=== PATIENT | female | born 1990 | race Caucasian/White ===

== ENCOUNTER → 2017-04-15 | Outpatient (CLI) | payer OTHER ==
[~2017-04-15] MED LIST: MTR600X PO; PRENTAB26 PO
[2017-04-15 13:11] LABS: BASO % 0.5 %; BASO ABS # 0.04 K/uL (0-0.2); COMPLETE YES; EOS % 2.8 %; HEMATOCRIT 41.9 % (37-47); IG% 0.1 %; LYMPH % 28.7 %; LYMPH ABS # 2.46 K/uL (1.2-3.4); MEAN CELL VOLUME 88.8 fL (80-100); MEAN CORPUSCULAR HEMOGLOBIN 29.9 pg (25-34); MEAN CORPUSCULAR HGB CONC 33.7 g/dl (32-36); MEAN PLATELET VOLUME 10.4 fL (7.4-10.4); MONO % 3.7 %; NEUT % 64.2 %; PLATELET COUNT 238 K/uL (130-400); RED BLOOD COUNT 4.72 M/uL (4.2-5.4); WHITE BLOOD COUNT 8.58 K/uL (4.8-10.8)
[2017-04-15 13:42] LABS: ALT/SGPT 32 U/L (12-78); BLOOD UREA NITROGEN 10 mg/dl (7-18); BUN/CREATININE RATIO 13.3 (10-20); CARBON DIOXIDE 26 mmol/L (21-32); CHLORIDE 105 mmol/L (98-107); CREATININE 0.72 mg/dl (0.60-1.20); GLUCOSE 96 mg/dl (70-99); SODIUM 140 mmol/L (136-145)
[2017-04-15 13:44] LABS: CALCIUM 9.5 mg/dl (8.5-10.1)
[2017-04-15 13:52] LABS: ALB/GLOB RATIO 0.9 (0.9-2); ALKALINE PHOSPHATASE 69 U/L (45-117); AST/SGOT 14 U/L (15-37)
[2017-04-15 14:21] LABS: LYME DISEASE AB IGM NEG (NEG)
[2017-04-15 14:24] LABS: LYME DISEASE AB IGG NEG (NEG)
--- NOTE | 2017-04-23 06:44 | CODING QUERY MEDICAL NECESSITY ---
SUPPORTING DIAGNOSIS NEEDED Ritter RIDDLE, A supporting diagnosis is required for the test/procedure performed on this patient in order for us to be reimbursed by the patient's insurance. Please provide a supporting diagnosis for the following test/procedure listed below next to the test name along with your signature. *If there is no additional diagnosis for this patient that would support the following test/procedure please document that below next to the test/procedure. Test(s)/Procedure(s) that require a supporting diagnosis: * VITAMIN D ASSAY DIAGNOSIS: DATE OF SERVICE: 04/15/17 Provider Signature: Date: Thank you Boby Monzon [facility] Information Management Once completed, please kindly fax back to [phone] For questions please call [phone]
== END | disposition home or self-care (01) ==
LOC: C.LAB 12:34
PROVIDERS: ATTEND Nurse Practitioner Adult Health
DX: F32.9 Major depressive disorder, single episode, unspecified (principal); F41.9 Anxiety disorder, unspecified; Z86.2 Personal history of diseases of the blood and blood-forming organs and certain disorders involving the immune mechanism; R53.83 Other fatigue

== ENCOUNTER 2017-11-02 22:38 | Emergency (ER) | payer OTHER ==
[~2017-11-02] VITALS: Ht 160 cm; Wt 85.6 kg
[2017-11-02 22:41] VITALS: TEMP 36.9; Ht 160 cm; Wt 85.6 kg
[2017-11-02 23:01] VITALS: O2SAT 97
[2017-11-02] MEDS ORDERED: ASPIRIN 81 MG CHEW PO STA (23:02)
[2017-11-02 23:10] LABS: BASO % 0.3 %; BASO ABS # 0.02 K/uL (0-0.2); COMPLETE YES; EOS % 2.7 %; HEMATOCRIT 39.3 % (37-47); IG% 0.1 %; LYMPH % 37.8 %; LYMPH ABS # 2.91 K/uL (1.2-3.4); MEAN CELL VOLUME 89.5 fL (80-100); MEAN CORPUSCULAR HEMOGLOBIN 30.5 pg (25-34); MEAN CORPUSCULAR HGB CONC 34.1 g/dl (32-36); MEAN PLATELET VOLUME 10.4 fL (7.4-10.4); MONO % 6.8 %; NEUT % 52.3 %; PLATELET COUNT 192 K/uL (130-400); RED BLOOD COUNT 4.39 M/uL (4.2-5.4)
[2017-11-02] MEDS ORDERED: CHOL20007 PO (23:24)
[2017-11-02 23:27] LABS: ALT/SGPT 62 U/L (12-78); AST/SGOT 29 U/L (15-37); BLOOD UREA NITROGEN 15 mg/dl (7-18); BUN/CREATININE RATIO 20.2 (10-20); CALCIUM 9.2 mg/dl (8.5-10.1); CARBON DIOXIDE 27 mmol/L (21-32); CHLORIDE 105 mmol/L (98-107); CREATININE 0.76 mg/dl (0.60-1.20); GLUCOSE 96 mg/dl (70-99); POTASSIUM 3.5 mmol/L (3.5-5.1); SODIUM 137 mmol/L (136-145)
[2017-11-02 23:30] LABS: ALKALINE PHOSPHATASE 74 U/L (45-117)
[2017-11-02 23:39] LABS: POINT OF CARE TROPONIN I < 0.030 ng/ml (0-0.045)
[2017-11-02 23:41] LABS: PREG INTERNAL NEGATIVE QC NEG CLEAR BACKGROUND; PREG INTERNAL POSITIVE QC POS CONTROL LINE
[2017-11-02] MEDS ORDERED: SODIUM CHLORIDE 0.9% 500ML 500 ML IV STA (23:43)
[2017-11-03] MEDS ORDERED: OPTIRAY 320 IV PRN
[2017-11-03 00:52] VITALS: BP 92/64; PULSE 74; O2SAT 99
--- NOTE | 2017-11-03 02:06 | EMERGENCY ROOM VISIT NOTE ---
History Report prepared by Rina: Jeny Bahena Under the Supervision of: Dr. Valentina Liz M.D. First contact with patient: 22:44 Chief Complaint: CARDIAC ASSESSMENT Stated Complaint: CHEST DISCOMFORT,BACK PAIN,SWELLING OF HANDS,DIZZY History of Present Illness The patient is a 27 year old female who presents to the Emergency Room with complaints of persistent left chest pain that began one week ago. The patient states that she was sitting down earlier when she began experiencing severe shoulder pain and hand swelling, noting it was new compared to her chest pain. She describes her discomfort as a dull pain behind her left breast that tends to be sharp at times, but becomes dull again. The patient notes it sometimes worsens with breathing. The patient states she had pizza for dinner. She denies taking control or being a smoker. The patient states she is a nurse. Source of History: patient Onset: one week ago Position: chest (left) Quality: sharp, dull Timing: other (persistent) Modifying Factors (Worsening): breathing (sometimes) Note: Associated symptoms include: shoulder pain and hand swelling. Review of Systems See HPI for pertinent positives & negatives. A total of 10 systems reviewed and were otherwise negative. Past Medical & Surgical Medical Problems: (1) Decreased movement in in third trimester, antepartum (2) Normal labor and delivery (3) Other specified complication, antepartum (4) Ovarian cyst (5) Right sided abdominal pain (6) UTI (urinary tract infection) Surgical Problems: (1) S/P cholecystectomy Family History Diabetes mellitus FHx: gallbladder disease Heart disease Social History Smoking Status: Never Smoker Alcohol Use: occasionally Housing Status: lives with family Occupation Status: student Current/Historical Medications Scheduled Cholecalciferol (Vitamin D3), 2,000 UNITS PO DAILY Allergies Coded Allergies: Adhesives (Verified Allergy, Unknown, , redness,swelling, 11/02/17) Latex1 -Allergic Contact Dermititis (Verified Allergy, Unknown, rash, ) Uncoded Allergies: CHERRIES (Allergy, Severe, ANAPHYLAXIS, 06/10/16) BANANAS (Allergy, Intermediate, DRY MOUTH, 06/10/16) Physical Exam Vital Signs Date Time Temp Pulse Resp B/P (MAP) Pulse Ox O2 Delivery O2 Flow Rate FiO2 11/03/17 00:52 74 18 92/64 99 Room Air 11/03/17 00:13 94 18 98/74 97 Room Air 11/02/17 23:01 101 18 129/72 97 Room Air 11/02/17 23:01 97 Room Air 11/02/17 23:01 98 Room Air 11/02/17 22:58 105 11/02/17 22:41 36.9 100 18 134/86 100 Room Air Physical Exam Vital signs reviewed. General: Well-appearing female, tearful but in no significant distress. HEENT: No scleral icterus, PERRLA, neck supple. Atraumatic. Cardiovascular: Regular rate and rhythm, no extra sounds. Pulmonary: Clear to auscultation bilaterally, normal work of breathing. Abdomen: Soft, nontender, nondistended, positive bowel sounds. Musculoskeletal: Atraumatic, no peripheral edema. Neurologic: Patient awake alert and oriented x 3 Skin: Warm, dry, no rash Medical Decision & Procedures ER Provider Diagnostic Interpretation: Radiology results as stated below per my review: Chest x-ray: Poor inspiratory effort, no focal consolidation. Performed: 11/02/2017 23:02 CTA CHEST: Preliminary findings only: No evidence of PE. Lungs are clear. No pleural effusions. No adenopathy. Heart size is normal. Aorta is unremarkable. Radiologist: Josias Liu M.D. Laboratory Results 11/02/17 22:58 Red Blood Count 4.39, Mean Corpuscular Volume 89.5, Mean Corpuscular Hemoglobin 30.5, Mean Corpuscular Hemoglobin Concent 34.1, Mean Platelet Volume 10.4, Neutrophils (%) (Auto) 52.3, Lymphocytes (%) (Auto) 37.8, Monocytes (%) (Auto) 6.8, Eosinophils (%) (Auto) 2.7, Basophils (%) (Auto) 0.3, Neutrophils # (Auto) 4.03, Lymphocytes # (Auto) 2.91, Monocytes # (Auto) 0.52, Eosinophils # (Auto) 0.21, Basophils # (Auto) 0.02 11/02/17 22:58 Test 11/02/17 22:58 11/02/17 23:21 White Blood Count 7.70 K/uL (4.8-10.8) Red Blood Count 4.39 M/uL (4.2-5.4) Hemoglobin 13.4 g/dL (12.0-16.0) Hematocrit 39.3 % (37-47) Mean Corpuscular Volume 89.5 fL (80-100) Mean Corpuscular Hemoglobin 30.5 pg (25-34) Mean Corpuscular Hemoglobin Concent 34.1 g/dl (32-36) Platelet Count 192 K/uL (130-400) Mean Platelet Volume 10.4 fL (7.4-10.4) Neutrophils (%) (Auto) 52.3 % Lymphocytes (%) (Auto) 37.8 % Monocytes (%) (Auto) 6.8 % Eosinophils (%) (Auto) 2.7 % Basophils (%) (Auto) 0.3 % Neutrophils # (Auto) 4.03 K/uL (1.4-6.5) Lymphocytes # (Auto) 2.91 K/uL (1.2-3.4) Monocytes # (Auto) 0.52 K/uL (0.11-0.59) Eosinophils # (Auto) 0.21 K/uL (0-0.5) Basophils # (Auto) 0.02 K/uL (0-0.2) RDW Standard Deviation 41.5 fL (36.4-46.3) RDW Coefficient of Variation 12.7 % (11.5-14.5) Immature Granulocyte % (Auto) 0.1 % Immature Granulocyte # (Auto) 0.01 K/uL (0.00-0.02) Anion Gap 5.0 mmol/L (3-11) Est Creatinine Clear Calc Drug Dose 115.3 ml/min Estimated GFR () 124.6 Estimated GFR (Non- 107.5 BUN/Creatinine Ratio 20.2 (10-20) Calcium Level 9.2 mg/dl (8.5-10.1) Total Bilirubin 0.3 mg/dl (0.2-1) Direct Bilirubin < 0.1 mg/dl (0-0.2) Aspartate Amino Transf (AST/SGOT) 29 U/L (15-37) Alanine Aminotransferase (ALT/SGPT) 62 U/L (12-78) Alkaline Phosphatase 74 U/L (45-117) Total Protein 8.5 gm/dl (6.4-8.2) Albumin 4.0 gm/dl (3.4-5.0) Human Chorionic Gonadotropin, Qual NEG (NEG) Bedside D-Dimer > 450 ng/mlFEU (0-450) Bedside Troponin I < 0.030 ng/ml (0-0.045) Laboratory results per my review. Medications Administered Medications (Trade) Dose Ordered Sig/Verónica Route Start Time Stop Time Status Last Admin Dose Admin Aspirin (Aspirin Chew) 324 mg NOW STAT PO 11/02/17 23:02 11/02/17 23:04 DC 11/02/17 23:13 324 MG Sodium Chloride 500 ml @ 999 mls/hr Q31M STAT IV 11/02/17 23:43 11/03/17 00:13 DC 11/02/17 23:43 999 MLS/HR ECG Indication: chest pain Rate (beats per minute): 105 Rhythm: sinus tachycardia Findings: no acute ischemic change, no ectopy, other (t-waves flat ) ED Course 2301: Past medical records reviewed. The patient was evaluated in room A3. A complete history and physical examination was performed. 2302: Ordered Aspirin 324mg PO. 2343: Ordered Sodium Chloride 500ml @ 999mls/hr. 2426: I reevaluated the patient, who was resting comfortably. 0000: Ordered Ioversol 100ml IV. 0010: Upon reevaluation, the patient appeared to have improvement of her symptoms. I discussed findings with her. She verbalized agreement of the treatment plan. The patient was discharged home. Medical Decision Differential diagnosis: Etiologies such as cardiac ischemia, aortic dissection, pulmonary embolism, pneumonia, pneumothorax, musculoskeletal, infections, pericarditis, myocarditis , esophageal rupture, gastrointestinal, as well as others were entertained. This patient was evaluated and appeared to be in some discomfort. Patient was tearful and somewhat anxious. IV access was obtained and laboratory work was drawn. She was placed on the cardiac exercise specialist and found to be in a sinus tachycardia. The patient was given aspirin 324 mg to chew. Chest x-ray was obtained and to my interpretation is negative. EKG reveals no acute ischemic changes however the patient remained tachycardic. Laboratory work revealed negative cardiac enzymes but a positive d-dimer. CT scan of the chest was performed and is negative for PE. Patient was advised of the findings. She will use ibuprofen as needed for pain with food. She will return to the ER for worsening of symptoms or any medical concerns. Medication Reconcilliation Current Medication List: was personally reviewed by me Blood Pressure Screening Blood pressure disposition: Did not require urgent referral Impression Primary Impression: Atypical chest pain Scribe Attestation The scribe's documentation has been prepared under my direction and personally reviewed by me in its entirety. I confirm that the note above accurately reflects all work, treatment, procedures, and medical decision making performed by me. Departure Information Dispostion Home / Self-Care Referrals No Doctor, Assigned (PCP) Forms IMPORTANT VISIT INFORMATION Patient Instructions My [facility] Additional Instructions Diagnosis: Atypical chest pain Ibuprofen 600 mg every 6 hours as needed for pain with food. Minimize the salt in your diet, less than 2 g daily. Please drink plenty of clear fluids. Review physician for reevaluation this week. Return to the ER for worsening of symptoms or any medical concerns.
--- NOTE | 2017-11-03 06:40 | DIAGNOSTIC IMAGING REPORT ---
CT ANGIOGRAM OF THE CHEST CLINICAL HISTORY: Shortness of breath and elevated d-dimer COMPARISON STUDY: Chest x-ray dated 11/02/2017 TECHNIQUE: Following the IV administration of 80 mL of Optiray-320, CT angiogram of the thorax was performed from the thoracic inlet to the lung bases utilizing the pulmonary embolus protocol. Images are reviewed in the axial, sagittal, and coronal planes. IV contrast was administered without complication. MIP imaging was performed. A dose lowering technique was utilized adhering to the principles of ALARA. CT DOSE: 473.19 mGy.cm FINDINGS: No pathologically enlarged axillary mediastinal or hilar lymph nodes were visualized. There was no evidence of thoracic aortic dilatation. There were no pulmonary artery filling defects to indicate acute pulmonary embolism. No pleural effusions are visualized. Slight groundglass attenuation the lungs, likely secondary to a suboptimal inspiration. There is no focal pulmonary consolidation. IMPRESSION: 1. No evidence of acute pulmonary embolism 2. No evidence of focal pulmonary consolidation 3. No evidence of pathologic adenopathy. Electronically signed by: Seymour Rubin M.D. 11/03/2017 6:39 AM Dictated Date/Time: 11/03/2017 6:37 AM
--- NOTE | 2017-11-03 06:59 | DIAGNOSTIC IMAGING REPORT ---
CHEST ONE VIEW PORTABLE CLINICAL HISTORY: Atypical chest pain COMPARISON STUDY: No previous studies for comparison. FINDINGS: The cardiac and mediastinal contours are normal. There is no evidence of focal pulmonary consolidation. There is no evidence of failure. No pleural effusions are visualized.[ IMPRESSION: No active disease in the chest. Electronically signed by: Seymour Rubin M.D. 11/03/2017 6:57 AM Dictated Date/Time: 11/03/2017 6:57 AM
== END 2017-11-03 00:54 | disposition home or self-care (01) ==
LOC: C.EDB 22:39 → C.EDA 11-03 00:54
DX: R07.89 Other chest pain (principal); R00.0 Tachycardia, unspecified; N83.209 Unspecified ovarian cyst, unspecified side; Z87.440 Personal history of urinary (tract) infections; Z90.49 Acquired absence of other specified parts of digestive tract; Z91.040 Latex allergy status; Z91.09 Other allergy status, other than to drugs and biological substances; Z83.3 Family history of diabetes mellitus; Z83.79 Family history of other diseases of the digestive system; Z82.49 Family history of ischemic heart disease and other diseases of the circulatory system

== ENCOUNTER → 2017-11-14 | Outpatient (CLI) | payer OTHER ==
[~2017-11-14] MED LIST changes: +CHOL20007 PO; -MTR600X PO; -PRENTAB26 PO
== END | disposition home or self-care (01) ==
LOC: C.LAB 08:57
PROVIDERS: ATTEND Nurse Practitioner Family
DX: R07.9 Chest pain, unspecified (principal)

== ENCOUNTER 2018-01-02 19:10 | Emergency (ER) | payer OTHER ==
[~2018-01-02] VITALS: Ht 160 cm; Wt 86.1 kg
[2018-01-02 19:19] VITALS: TEMP 36.8; Ht 160 cm; Wt 86.1 kg
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
--- NOTE | 2018-01-02 21:53 | DIAGNOSTIC IMAGING REPORT ---
CT OF THE HEAD WITHOUT CONTRAST CLINICAL HISTORY: EVALUATE FOR TRAUMA/INJURY COMPARISON STUDY: Head CT March 30, 2013. TECHNIQUE: Helical axial images of the head were obtained without IV contrast. Automated exposure control was utilized for the study. A dose lowering technique was utilized adhering to the principles of ALARA. FINDINGS: No acute intracranial hemorrhage, midline shift or mass effect is present. Brain volume is normal. Ventricular system is normal. Basilar cisterns are patent. There are no extra-axial collections. There is a small forehead contusion. There is no calvarial fracture. IMPRESSION: 1. No acute intracranial findings. 2. Small forehead contusion. No calvarial fracture. Electronically signed by: López Kurtz M.D. 01/02/2018 9:52 PM Dictated Date/Time: 01/02/2018 9:49 PM
--- NOTE | 2018-01-02 21:55 | DIAGNOSTIC IMAGING REPORT ---
MAXILLOFACIAL CT WITHOUT CONTRAST CLINICAL HISTORY: EVALUATE FOR TRAUMA/INJURY COMPARISON STUDY: Head CT March 30, 2013. TECHNIQUE: A maxillofacial CT was performed without IV contrast. Coronal and sagittal reformats were viewed. A dose lowering technique was utilized adhering to the principles of ALARA. FINDINGS: Globes are intact. There is no retrobulbar hematoma. Alignment of the temporomandibular joints is anatomic. There is moderate mucosal thickening of the left maxillary sinus as well as the left ethmoid sinuses. There is a small forehead contusion. There is no calvarial fracture. IMPRESSION: 1. No acute facial fracture. 2. Small forehead contusion. Electronically signed by: López Kurtz M.D. 01/02/2018 9:54 PM Dictated Date/Time: 01/02/2018 9:52 PM
--- NOTE | 2018-01-02 22:30 | DIAGNOSTIC IMAGING REPORT ---
CHEST ONE VIEW PORTABLE CLINICAL HISTORY: EVALUATE FOR TRAUMA/INJURY COMPARISON STUDY: Chest radiograph and chest CT November 02, 2017. FINDINGS: There is no pneumothorax or pleural effusion. Lung volumes are at the lower limits of normal. Lungs are clear. Cardiac size is normal. Mediastinal contours are normal. Pulmonary vascularity is normal. IMPRESSION: No acute cardiopulmonary findings. Electronically signed by: López Kurtz M.D. 01/02/2018 10:29 PM Dictated Date/Time: 01/02/2018 10:28 PM
[2018-01-02 22:33] VITALS: BP 121/75; PULSE 99; O2SAT 99
== END 2018-01-02 22:33 | disposition home or self-care (01) ==
LOC: C.EDB 19:12
DX: S00.83XA Contusion of other part of head, initial encounter (principal); S80.211A Abrasion, right knee, initial encounter; S01.552A Open bite of oral cavity, initial encounter; S02.5XXA Fracture of tooth (traumatic), initial encounter for closed fracture; V48.5XXA Car driver injured in noncollision transport accident in traffic accident, initial encounter; Z91.048 Other nonmedicinal substance allergy status; Z91.040 Latex allergy status; Z83.3 Family history of diabetes mellitus; Z82.49 Family history of ischemic heart disease and other diseases of the circulatory system; Z83.79 Family history of other diseases of the digestive system

== ENCOUNTER 2024-01-16 10:34 | Observation (INO) ==
[2024-01-16] MEDS: SODIUM CHLORIDE 0.9% 1,000 ML IV STA (10:55)
[2024-01-16] MEDS: ONDANSETRON INJ 2 MG/ML 2 ML VIAL IV STA ×2 (10:58→15:49)
[2024-01-16] MEDS: FAMOTIDINE 20MG IV PUSH 20 MG/5 ML SYR IV STA (10:59)
[2024-01-16 11:07] LABS: Basophils # (auto) 0.02 K/uL (0.00-0.20); Basophils % (auto) 0.3 %; Eosinophils # (auto) 0.09 K/uL (0.00-0.50); Eosinophils % (auto) 1.5 %; Hematocrit (blood only) 39.2 % (37.0-47.0); Hemoglobin 13.3 g/dl (12.0-16.0); Immature Granulocytes # (auto) 0.02 K/uL (0.01-0.20); Immature Granulocytes % (auto) 0.3 %; Lymphocytes # (auto) 0.97 K/uL (1.20-3.40); Lymphocytes % (auto) 16.6 %; Mean Corpuscular Hemoglobin 29.6 pg (25.0-34.0); Mean Corpuscular Hgb Conc 33.9 g/dL (32.0-36.0); Mean Corpuscular Volume 87.1 fL (80.0-100.0); Mean Platelet Volume 10.3 fL (9.4-12.4); Monocytes % (auto) 6.8 %; Neutrophils # (auto) 4.36 K/uL (1.40-6.50); Neutrophils % (auto) 74.5 %; Platelet Count 193 K/uL (130-400); RDW Coefficient of Variation 12.6 % (11.5-14.5); RDW Standard Deviation 40.2 fL (36.4-46.3); White Blood Count 5.86 K/ul (4.8-10.8)
[2024-01-16 11:08] LABS: Albumin Globulin Ratio 1.7 (0.9-2); Albumin Level 4.7 gm/dl (3.4-5.0); BUN Creatinine Ratio 18.4 (10-20); Bilirubin,Total 0.3 mg/dl (0.2-1.0); Calcium 9.3 mg/dl (8.6-10.3); Creatinine Clr Calc Pharmacy 110.8 ml/min; Est GFR (African American) 119.5 ml/min; Est GFR (Non-African American) 103.1 ml/min; Globulin 2.8 gm/dl (2.5-4.0); Potassium 3.5 mmol/L (3.5-5.1); Total Protein 7.5 gm/dl (6.0-8.3)
--- NOTE | 2024-01-16 11:10 | Emergency Department Note ---
Impression & Plan Acute upper gastrointestinal bleeding ED Provider Note NAME: BELA VINSON AGE: 33 SEX: F : 1990 ARRIVES VIA: Walk-In INFORMANT: Patient, ED PROVIDER(S): Zi Vidales DO CHIEF COMPLAINT: Epigastric pain HPI: The patient is a 33-year-old female who presented to the emergency department for an evaluation of epigastric pain. The patient has a history of gastric ulcer disease. She does take medications for this. She has been compliant with her outpatient medications. The patient started noticing epigastric pain and left upper quadrant pain as well as back pain over the course of the last 24 hours. She started noticing black tarry stool as well. The patient's stool was heme positive. The patient states her pain is moderate to severe. She denies having any fever. She denies having any chest pain or difficulty breathing. Patient denies having any leg swelling. ROS: See above HPI for pertinent positives & negatives. A total of 10 systems reviewed and were otherwise negative. PAST MEDICAL HISTORY: See Below PAST SURGICAL HISTORY: See Below FAMILY HISTORY: See Below SOCIAL HISTORY: See Below HOME MEDICATIONS: See Below ALLERGIES: See Below VITALS: See Below PHYSICAL EXAMINATION: GENERAL: The patient is awake and alert. The patient is very anxious and appears to be uncomfortable. EYES: The conjunctivae are clear. The pupils are round and reactive. EARS, NOSE, MOUTH AND THROAT: The nose is without any evidence of any deformity. NECK: The neck is nontender and supple. RESPIRATORY: Normal respiratory effort is noted there is no evidence of wheezing rhonchi or rales CARDIOVASCULAR: Tachycardic rate with regular heart sounds were noted. There is no definite murmur. GASTROINTESTINAL: Abdomen is distended. There is epigastric tenderness as well as left upper quadrant tenderness to palpation which is moderate. MUSCULOSKELETAL/EXTREMITIES: There is no evidence of gross deformity full range of motion is noted in the hips and shoulders. SKIN: There is no obvious evidence of any rash. There are no petechiae, pallor or cyanosis noted. NEUROLOGIC: Patient is awake alert and oriented x3 MEDICAL DECISION MAKING: The patient is a 33-year-old female who has a history of peptic ulcer disease who presented to the emergency department for an evaluation of the upper GI bleeding. The patient started noticing upper abdominal pain but also black tarry stool. The stool was heme positive. The patient's hemoglobin was stable but she was persistently tachycardic. Given her pain as well as her past medical history further laboratory and radiographic studies were obtained. The patient was treated with a Protonix drip. She was also treated with IV fluids and IV pain medication as well as IV antiemetics. She was given IV antibiotics because of the upper GI bleeding. I discussed the patient's laboratory and radiographic studies with her. I discussed her condition with the on-call [facility]. They have agreed to evaluate the patient in the emergency department for further management and disposition. Triage Nursing notes reviewed. Prior medical records reviewed Vital Signs: reviewed and remarkable for tachycardia. Differential diagnosis: Diverticulosis, AVM, coagulopathy, colitis, inflammatory bowel disease, malignancy, Moira-Joya tear, esophagitis, peptic ulcer disease, variceal bleed, gastritis, epistaxis, fissure, hemorrhoids, as well as other pathologies. ER treatment provided: See below Diagnostics interpreted by me: ECG: none Cardiac Monitoring: An order was placed for continuous cardiac monitoring. The monitor shows a rate of 111 bpm with sinus tachycardia Laboratory studies: As stated above and show below. Imaging studies: See below. Radiographic imaging was reviewed by myself Consultation(s): I discussed this case with Anil who is covering for the [facility] group. ED COURSE: Procedures: none Critical Care: I have personally spent greater than 45 minutes of critical care time in the direct management of this patient. This includes bedside care, interpretation of diagnostic studies, and testing, discussion with consultants, patient, and family members, and other required patient management activities. This 45 minutes is in excess of all separately billable procedures. Past Med/Surg History Medical History Palpitations has worn heart monitor in past > nothing conclusive History of COVID-19 2020 ADHD Swallowing difficulty reason for up coming colon/EGD Difficult airway for intubation small airway--had to be kept overnight after cholecystectomy History of anesthesia reaction difficulty waking Symptoms consistent with irritable bowel syndrome reason for up coming colon/EGD Anxiety Depression History of anemia Migraine Surgical History History of esophagogastroduodenoscopy (EGD) History of cholecystectomy (~2009) Family History Grandmother (Maternal) Melanoma Myocardial infarction Aunt Aneurysm and dissection of heart Father Diabetes Melanoma Hypertension TIA (transient ischemic attack) Brother Gallbladder disease Mother Diabetes Other No family history of adverse response to anesthesia Denies family history of Colon cancer Ovarian cancer Prostate cancer Breast cancer Social History Smoking Status: Never smoker Second Hand Exposure: No; Do You Dip or Chew Tobacco: No; Hx Alcohol Use: Yes Alcohol type: wine Alcohol Intake Frequency: Monthly or Less Hx Substance Use: No Preferred Language: Nepali Communication Ability: Effective Visual Impairment: No Limitations Hearing Ability: Normal Email Marketing Coordinator Required: No Beliefs That Will Affect Care: None marital status: Single Current Living Situation: Family and Significant Other Current Living Situation Comment: Lives with and 3 kids current occupational status: employed 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[employer] How many Children do You have: 2 Feels Safe at Home: Yes Childhood Exposure to Second-Hand Smoke: No Diet: regular caffeine: No during the past year weight has: decreased > 10 lbs Dental Care, Regularly: No Physical Activity Frequency: Daily Seatbelt Use: always Sunscreen Use: Yes Assistive Devices: Contacts and Glasses Allergies Allergies Allergy/AdvReac Type Severity Reaction Status Date / Time ennis Allergy Severe Anaphylaxis Verified 12/07/23 08:49 adhesive Allergy Intermediate redness,swe Verified 12/07/23 08:49 lling egg Allergy Intermediate Rash Verified 12/07/23 08:49 Influenza Virus Vaccines Allergy Intermediate swelling Verified 12/07/23 08:49 of arm latex Allergy Mild rash Verified 12/07/23 08:49 banana AdvReac Mild Dry Mouth Verified 12/07/23 08:49 Home Meds Home Medications Medication Instructions Recorded Confirmed acetaminophen 325 mg capsule 650 mg PO Q4H PRN Pain 04/14/19 01/16/24 (Tylenol) riboflavin (vitamin B2) 400 mg 400 mg PO QAM 04/14/19 01/16/24 tablet cholecalciferol (vitamin D3) 50 2,000 units PO QAM 04/19/19 01/16/24 mcg (2,000 unit) capsule omega-3 fatty acids 1,000 mg 1,000 mg PO QAM 04/19/19 01/16/24 capsule magnesium 250 mg tablet 250 mg PO QAM 07/22/19 01/16/24 flaxseed oil 1,000 mg capsule 1,000 mg PO QAM 07/18/21 01/16/24 dextroamphetamine-amphetamine 5 mg 5 mg PO BID 07/17/23 01/16/24 tablet (Adderall) buspirone 5 mg tablet 15 mg PO DAILY Anxiety 12/03/23 01/16/24 fluoxetine 40 mg capsule 40 mg PO HS 01/16/24 01/16/24 Previous Rx's Medication Instructions Recorded dicyclomine 10 mg capsule 10 mg PO QID #30 caps 06/09/23 pantoprazole 40 mg tablet,delayed 40 mg PO BID #60 tabs 07/27/23 release ondansetron 4 mg disintegrating 4 mg PO Q8H PRN Nausea #30 tabs 12/07/23 tablet Results & Data (ED) Vital Signs Vital Signs - 24 hr 01/16/24 10:46 01/16/24 10:51 01/16/24 11:56 Temperature 36.8 C Temperature Source Oral Pulse Rate 116 H 111 H Pulse Rate [Apical] Respiratory Rate 20 Blood Pressure 118/91 Blood Pressure [Left Arm] Blood Pressure Mean 100 Blood Pressure Mean [Left Arm] Pulse Oximetry 98 97 Oxygen Delivery Method Room Air Room Air Sepsis Recent Fever Within 48 Hours No Sepsis New/Unexplained Change in Mental Status N/A Sepsis Action Taken by Nursing No Action Required 01/16/24 12:10 01/16/24 13:29 Temperature Temperature Source Pulse Rate Pulse Rate [Apical] 118 H 111 H Respiratory Rate 19 19 Blood Pressure Blood Pressure [Left Arm] 126/80 118/89 Blood Pressure Mean Blood Pressure Mean [Left Arm] 95 98 Pulse Oximetry 100 99 Oxygen Delivery Method Room Air Room Air Sepsis Recent Fever Within 48 Hours Sepsis New/Unexplained Change in Mental Status Sepsis Action Taken by [facility] Medications Current Medication List: was personally reviewed by me Laboratory Data Attestation: I reviewed the patient's lab results. 01/16/24 10:39 01/16/24 10:39 Lab Results 01/16/24 01/16/24 Range/Units 10:39 12:40 WBC 5.86 (4.8-10.8) K/ul RBC 4.50 (4.20-5.40) M/uL Hgb 13.3 (12.0-16.0) g/dl Hct 39.2 (37.0-47.0) % MCV 87.1 (80.0-100.0) fL MCH 29.6 (25.0-34.0) pg MCHC 33.9 (32.0-36.0) g/dL RDW Std Deviation 40.2 (36.4-46.3) fL RDW Coeff of Patrick 12.6 (11.5-14.5) % Plt Count 193 (130-400) K/uL MPV 10.3 (9.4-12.4) fL Immature Gran % (Auto) 0.3 % Neut % (Auto) 74.5 % Lymph % (Auto) 16.6 % Toole % (Auto) 6.8 % Eos % (Auto) 1.5 % Baso % (Auto) 0.3 % Neut # (Auto) 4.36 (1.40-6.50) K/uL Lymph # (Auto) 0.97 L (1.20-3.40) K/uL Toole # (Auto) 0.40 (0.11-0.59) K/uL Eos # (Auto) 0.09 (0.00-0.50) K/uL Baso # (Auto) 0.02 (0.00-0.20) K/uL Immature Gran # (Auto) 0.02 (0.01-0.20) K/uL Sodium 136 (136-145) mmol/L Potassium 3.5 (3.5-5.1) mmol/L Chloride 101 (98-107) mmol/L Carbon Dioxide 27 (21-32) mmol/L Anion Gap 8 (3-11) BUN 14 (6-23) mg/dl Creatinine 0.76 (0.6-1.2) mg/dl Est Cr Clr Drug Dosing 110.8 ml/min Est GFR ( Amer) 119.5 ml/min Est GFR (Non-Af Amer) 103.1 ml/min BUN/Creatinine Ratio 18.4 (10-20) Glucose 96 (70-99(Fasting)) mg/dl Calcium 9.3 (8.6-10.3) mg/dl Total Bilirubin 0.3 (0.2-1.0) mg/dl AST 35 (13-39) U/L ALT 52 (7-52) U/L Alkaline Phosphatase 65 (34-104) U/L Total Protein 7.5 (6.0-8.3) gm/dl Albumin 4.7 (3.4-5.0) gm/dl Globulin 2.8 (2.5-4.0) gm/dl Albumin/Globulin Ratio 1.7 (0.9-2) Lipase 34 (11-82) U/L HCG, Qual Negative (Negative) Urine Color Yellow Urine Appearance Clear (Clear) Urine pH 6.0 (4.5-7.5) Ur Specific [place] > 1.045 H (1.000-1.030) Urine Protein Negative (Negative) Urine Glucose (UA) Negative (Negative) Urine Ketones Negative (Negative) Urine Blood Negative (Negative) Urine Nitrite Negative (Negative) Urine Bilirubin Negative (Negative) Urine Urobilinogen Negative (Negative) Ur Leukocyte Esterase Negative (Negative) Blood Type AB Positive Antibody Screen NEGATIVE Administered Medications Lactated Ringer's (Lr) 1,000 mls @ 999 mls/hr IV .Q1H1M ONE Stop: 01/16/24 13:51 Last Admin: 01/16/24 13:46 Dose: 999 mls/hr Documented By: ML Discontinued Medications Sodium Chloride (Nss) 1,000 mls @ 999 mls/hr IV .Q1H1M STA Stop: 01/16/24 11:46 Last Infusion: 01/16/24 11:56 Dose: Infused Documented By: Admin: 01/16/24 10:55 Dose: 999 mls/hr Documented By: SONAM Famotidine (Pepcid 20mg Iv Push) 20 mg in 5 mls @ 2.5 mls/min IV NOW STA Stop: 01/16/24 10:47 Last Admin: 01/16/24 10:59 Dose: 2.5 mls/min Documented By: SONAM Pantoprazole Sodium 80 mg/ (Dextrose) 120 mls @ 480 mls/hr IV NOW ONE Stop: 01/16/24 11:00 Last Infusion: 01/16/24 11:55 Dose: Infused Documented By: Admin: 01/16/24 11:29 Dose: 480 mls/hr Documented By: FAB Pantoprazole Sodium 40 mg/ (Dextrose) 100 mls @ 20 mls/hr IV Q5H [facility] Stop: 02/15/24 11:14 Last Admin: 01/16/24 11:50 Dose: 8 mg/hr, 20 mls/hr Documented By: ML Ceftriaxone Sodium (Rocephin) 2,000 mg in 50 mls @ 100 mls/hr IV NOW STA Stop: 01/16/24 12:18 Last Infusion: 01/16/24 13:25 Dose: Infused Documented By: Admin: 01/16/24 12:04 Dose: 100 mls/hr Documented By: ML Ioversol (Optiray 320 500ml) 90 ml IV ONCE ONE Stop: 01/16/24 11:19 Last Admin: 01/16/24 11:19 Dose: 90 ml Documented By: EDK Lorazepam (Lorazepam 1 Mg/1 Ml Syr Ed Inj Use) 1 mg IV ONE STA Stop: 01/16/24 11:39 Last Admin: 01/16/24 12:04 Dose: 1 mg Documented By: ML Morphine Sulfate (Morphine Sulfate 4 Mg/Ml 1 Ml Carp\Vial) 4 mg IV Q15M PRN PRN Reason: Pain Stop: 01/30/24 10:45 Last Admin: 01/16/24 12:57 Dose: 4 mg Documented By: ML Ondansetron HCl (Ondansetron Inj 2 Mg/Ml 2 Ml Vial) 4 mg IV NOW STA Stop: 01/16/24 10:47 Last Admin: 01/16/24 10:58 Dose: 4 mg Documented By: ML Pantoprazole Sodium (Pantoprazole Bolus/Drip) 1 each IV NOW STA Stop: 01/16/24 10:47 Last Admin: 01/16/24 11:51 Dose: Not Given Documented By: ML Imaging Data Attestation: I personally reviewed and interpreted this imaging study as follows: My Impression: CT of the abdomen and pelvis was obtained in the emergency department. My interpretation is no free air or signs of bowel obstruction, final report below. Radiologist's Impression: Abdomen/Pelvis CT 01/16/24 10:[address] WITH IV CONTRAST CT DOSE: 1338.59 mGy.cm HISTORY: Acute generalized abdominal pain with reported GI bleed UGIB TECHNIQUE: Multiaxial CT images of the abdomen and pelvis were performed following the IV administration of 90 cc of Optiray, A dose lowering technique was utilized adhering to the principles of ALARA. COMPARISON STUDY: 05/15/2023 FINDINGS: Clear lung bases. No free air. Spleen is upper limits of normal in size at 13 cm. Unremarkable pancreas and adrenal glands. Cholecystectomy. Hepatic steatosis. Patency of the hepatic and portal veins. Unremarkable kidneys. Partially decompressed urinary bladder. Nonspecific mild heterogeneity of the uterus. Probable uterine fibroid measuring 2 cm on image 315 series 3. Unremarkable abdominal aorta and IVC. No lymphadenopathy. No bowel obstruction. Mild colonic fecal retention. Scattered large and small bowel air-fluid levels. Circumferential wall thickening of the colon is most pronounced in the ascending and transverse segments. The appendix appears to be not inflamed. Areas of mild small bowel wall thickening also noted. Unremarkable soft tissues. No acute fracture. IMPRESSION: 1. No bowel obstruction or pneumoperitoneum. 2. The appendix appears uninflamed. 3. Findings compatible with a nonspecific enterocolitis with diarrheal illness. 4. Cholecystectomy. 5. Probable fibroid uterus. ACT 112: Negative or not required by law. The above report was generated using voice recognition software. It may contain grammatical, syntax or spelling errors. Electronically signed by: August Chou M.D. 01/16/2024 11:57 AM Chest X-Ray 01/16/24 10:46 XR chest 1V portable HISTORY: 33 years-old Female GIB acute GI bleed COMPARISON: 08/04/2021 TECHNIQUE: AP view of the chest FINDINGS: Cardiomediastinal and hilar silhouettes are within normal limits. There is no pneumothorax, pleural effusion, airspace consolidation or pulmonary edema. Bones appear grossly intact. IMPRESSION: No acute process. ACT 112: Negative or not required by law. The above report was generated using voice recognition software. It may contain grammatical, syntax or spelling errors. Electronically signed by: August Chou M.D. 01/16/2024 11:18 AM Discharge Plan Visit Data Chief Complaint: GI Bleed Stated Complaint: GI BLEED ED Provider: Zi Vidales Discharge Problem: Acute upper gastrointestinal bleeding Patient Disposition: Being Evaluated by Hospitalist Forms Stand Alone Forms: [facility] Prescriptions Prescriptions: No Action dicyclomine 10 mg capsule 10 mg PO QID Qty: 30 0RF riboflavin (vitamin B2) 400 mg tablet 400 mg PO QAM acetaminophen [Tylenol] 325 mg capsule 650 mg PO Q4H PRN (Reason: Pain) omega-3 fatty acids 1,000 mg capsule 1,000 mg PO QAM cholecalciferol (vitamin D3) 2,000 unit capsule 2,000 units PO QAM magnesium 250 mg tablet 250 mg PO QAM buspirone 5 mg tablet 15 mg PO DAILY ondansetron 4 mg tablet,disintegrating 4 mg PO Q8H PRN (Reason: Nausea) Qty: 30 2RF flaxseed oil 1,000 mg capsule 1,000 mg PO QAM Rx Instructions: administer with a meal dextroamphetamine-amphetamine [Adderall] 5 mg Tablet 5 mg PO BID pantoprazole 40 mg tablet,delayed release (DR/EC) 40 mg PO BID Qty: 60 5RF fluoxetine 40 mg capsule 40 mg PO HS Referrals Referrals: Salena Castaneda MD [Primary Care Provider] -
[2024-01-16 11:14] LABS: Pregnancy Test, Serum Negative (Negative)
[2024-01-16] MEDS: OPTIRAY 320 500ml IV ONE (11:19)
--- NOTE | 2024-01-16 11:19 | XRay Report ---
XR chest 1V portable HISTORY: 33 years-old Female GIB acute GI bleed COMPARISON: 08/04/2021 TECHNIQUE: AP view of the chest FINDINGS: Cardiomediastinal and hilar silhouettes are within normal limits. There is no pneumothorax, pleural e ffusion, airspace consolidation or pulmonary edema. Bones appear grossly intact. IMPRESSION: No acute process. ACT 112: Negative or not required by law. The above report was generated using voice recognition software. It may contain grammatical, syntax o r spelling errors. Electronically signed by: August Chou M.D. 01/16/2024 11:18 AM
[2024-01-16] MEDS: PANTOprazole 80 MG in DEXTROSE 5% 100 ML IV ONE (11:29)
[2024-01-16] MEDS: PANTOprazole 40 MG in DEXTROSE 5% MINI-B 100 ML IV SCH (11:50)
[2024-01-16] MEDS: PANTOPRAZOLE BOLUS/DRIP IV STA (11:51)
--- NOTE | 2024-01-16 11:59 | CT Scan Report ---
ABDOMEN AND PELVIS CT WITH IV CONTRAST CT DOSE: 1338.59 mGy.cm HISTORY: Acute generalized abdominal pain with reported GI bleed UGIB TECHNIQUE: Multiaxial CT images of the abdomen and pelvis were performed following the IV administrat ion of 90 cc of Optiray, A dose lowering technique was utilized adhering to the principles of ALARA. COMPARISON STUDY: 05/15/2023 FINDINGS: Clear lung bases. No free air. Spleen is upper limits of normal in size at 13 cm. Unremarka ble pancreas and adrenal glands. Cholecystectomy. Hepatic steatosis. Patency of the hepatic and terry l veins. Unremarkable kidneys. Partially decompressed urinary bladder. Nonspecific mild heterogeneity of the uterus. Probable uterine fibroid measuring 2 cm on image 315 series 3. Unremarkable abdominal aorta and IVC. No lymphadenopathy. No bowel obstruction. Mild colonic fecal retention. Scattered large and small bowel air-fluid levels. Circumferential wall thickening of the colon is most pronounced in the ascending and transverse segm ents. The appendix appears to be not inflamed. Areas of mild small bowel wall thickening also noted. Unremarkable soft tissues. No acute fracture. IMPRESSION: 1. No bowel obstruction or pneumoperitoneum. 2. The appendix appears uninflamed. 3. Findings compatible with a nonspecific enterocolitis with diarrheal illness. 4. Cholecystectomy. 5. Probable fibroid uterus. ACT 112: Negative or not required by law. The above report was generated using voice recognition software. It may contain grammatical, syntax o r spelling errors. Electronically signed by: August Chou M.D. 01/16/2024 11:57 AM
[2024-01-16] MEDS: LORazepam 1 MG/1 ML SYR ED Inj Use IV STA (12:04)
[2024-01-16] MEDS: cefTRIAXone SODIUM 2,000 MG/50 ML BAG IV STA (12:04)
--- NOTE | 2024-01-16 12:50 | History & Physical Report ---
Date of Service January 16, 2024 Assessment & Plan (1) Tachycardia: Plan: -Patient has been tachycardic with HR in the 110's since arrival -Patient denies being symptomatic at this time and denies recent chest pain, SOB, pleuritic chest pain, lightheadedness/dizziness -Likely a combination of pain, anxiety, and dehydration with poor oral intake -Patient did take her am dose of Adderral, this could be contributing as well -Will obtain ECG on admission -Continue to monitor on tele (2) Acute upper gastrointestinal bleeding: Plan: -See abdominal pain (3) ADHD: Plan: -Continue Adderral (4) Erosive gastritis: Plan: -Continue IV pantoprazole -Gi consult placed Plan The patient was discussed with Dr. Guzman at the time of the admission History of Present Illness Chief Complaint: abdominal pain, melena Primary Care Provider: Salena Castaneda MD Latasha is a 33 year old female with a PMH significant for erosive gastritis, chronic diarrhea, palpitations, ADHD, anxiety who presented to the [facility] ED on 01/16/24 with complaints of abdominal pain and melena. She was noted to be tachycardic with a HR in the 110's but was otherwise stable. Labs including CBC, CMP, and lipase were unremarkable besides a lymphocyte count of 0.97. Chest xray was negative for acute findings. CT of the abd/pelvis w/IV con was read as "1. No bowel obstruction or pneumoperitoneum. 2. The appendix appears uninflamed. 3. Findings compatible with a nonspecific enterocolitis with diarrheal illness. 4. Cholecystectomy. 5. Probable fibroid uterus. ". Prior to admission the patient was given a dose of Ceftriaxone, pantoprazole bolus and drip started, 1L NSS, 4mg IV morphine, 4mg IV zofran, 1mg IV ativan. The ED stated that her Hemoccult screen was positive. We were asked to admit the patient for ongoing monitoring and management of possible upper GI bleed. At the time of the exam the patient was sitting in bed in no acute distress. She states that she started to develop nausea approximately 48 hours ago. Since then she has also developed epigastric/LUQ pain with radiation to the back, as-well-as BL lower abdominal pain. This am she had an episode of melena but denies bright red stool and/or diarrhea. She denies using tobacco, alcohol, NSAID's, pepto-bsimol, or iron recently. Her pain is exacerbated with lying flat. She has had poor oral intake over the past 24 hours with her symptoms. She denies recent fever, chills, chest pain, SOB, cough, vomiting/hemoptysis, dysu suzan, hematuria, LE swelling, and recent trauma. She confirms that she decreased her dose of PO pantoprazole from BID to daily after her last GI clinic visit on 12/07/23. Review of her last colonoscopy and EGD on 07/27/23 show findings consistent with gastritis and non-bleeding internal hemorrhoids. The patient was last seen in the GI clinic on 12/07/23, her dose of Pantoprazole was decreased from 40 mg BID to daily due to improved symptoms. Please refer to Dr. Guzman's attestation for any changes to the treatment plan. Allergies Allergy/AdvReac Type Severity Reaction Status Date / Time ennis Allergy Severe Anaphylaxis Verified 12/07/23 08:49 adhesive Allergy Intermediate redness,swe Verified 12/07/23 08:49 lling egg Allergy Intermediate Rash Verified 12/07/23 08:49 Influenza Virus Vaccines Allergy Intermediate swelling Verified 12/07/23 08:49 of arm latex Allergy Mild rash Verified 12/07/23 08:49 banana AdvReac Mild Dry Mouth Verified 12/07/23 08:49 Home Medications Medication Instructions Recorded Confirmed Type acetaminophen 325 mg capsule 650 mg PO Q4H PRN Pain 04/14/19 01/16/24 History (Tylenol) riboflavin (vitamin B2) 400 mg 400 mg PO QAM 04/14/19 01/16/24 History tablet cholecalciferol (vitamin D3) 50 2,000 units PO QAM 04/19/19 01/16/24 History mcg (2,000 unit) capsule omega-3 fatty acids 1,000 mg 1,000 mg PO QAM 04/19/19 01/16/24 History capsule magnesium 250 mg tablet 250 mg PO QAM 07/22/19 01/16/24 History flaxseed oil 1,000 mg capsule 1,000 mg PO QAM 07/18/21 01/16/24 History dicyclomine 10 mg capsule 10 mg PO QID #30 caps 06/09/23 01/16/24 Rx dextroamphetamine-amphetamine 5 mg 5 mg PO BID 07/17/23 01/16/24 History tablet (Adderall) pantoprazole 40 mg tablet,delayed 40 mg PO BID #60 tabs 07/27/23 01/16/24 Rx release buspirone 5 mg tablet 15 mg PO DAILY Anxiety 12/03/23 01/16/24 History ondansetron 4 mg disintegrating 4 mg PO Q8H PRN Nausea #30 tabs 12/07/23 01/16/24 Rx tablet fluoxetine 40 mg capsule 40 mg PO HS 01/16/24 01/16/24 History Past Med/Surg History Medical History Palpitations has worn heart monitor in past > nothing conclusive History of COVID-19 2020 ADHD Swallowing difficulty reason for up coming colon/EGD Difficult airway for intubation small airway--had to be kept overnight after cholecystectomy History of anesthesia reaction difficulty waking Symptoms consistent with irritable bowel syndrome reason for up coming colon/EGD Anxiety Depression History of anemia Migraine Surgical History History of esophagogastroduodenoscopy (EGD) History of cholecystectomy (~2009) Family History Grandmother (Maternal) Melanoma Myocardial infarction Aunt Aneurysm and dissection of heart Father Diabetes Melanoma Hypertension TIA (transient ischemic attack) Brother Gallbladder disease Mother Diabetes Other No family history of adverse response to anesthesia Denies family history of Colon cancer Ovarian cancer Prostate cancer Breast cancer Social History Smoking Status: Never smoker Second Hand Exposure: No; Do You Dip or Chew Tobacco: No; Tobacco Cessation Education Requested by Patient: No Hx Alcohol Use: No Hx Substance Use: No Preferred Language: Czech Communication Ability: Effective Visual Impairment: No Limitations Hearing Ability: Normal Radio Repairer Required: No Beliefs That Will Affect Care: None marital status: Single Current Living Situation: Spouse and Family Current Living Situation Comment: Lives with and 3 kids current occupational status: employed 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[employer] How many Children do You have: 2 Other Information That Helps Us Care for You: No Feels Safe at Home: Yes Childhood Exposure to Second-Hand Smoke: No Diet: regular caffeine: No during the past year weight has: decreased > 10 lbs Dental Care, Regularly: No Physical Activity Frequency: Daily Seatbelt Use: always Sunscreen Use: Yes Assistive Devices: Contacts and Glasses Physical Exam Physical Exam: Physical Exam: General: In no acute distress, stated age, well-nourished, non-toxic appearing HEENT: Normocephalic, atraumatic, no scleral icterus, pupils around round, symmetrical, and reactive to light, dry mucus membranes, trachea midline, no thyromegaly Chest/Pulm: No respiratory distress, symmetrical chest expansion, clear breath sounds throughout Cardiac: tachycardic rate, regular rhythm, no murmurs noted Abdomen: Negative for ascites and bruising, normoactive bowel sounds, soft, tender to percussion in the RLQ, epigastric region and LUQ, tender to palpation in the same distribution as percussion without rebound tenderness, otherwise non-tender Musculoskeletal: Symmetrical and without signs of acute trauma, upper and lower extremities with full ROM, no atrophy, spasticity, or flaccidity >No bruising or trauma noted on inspection and palpation of the back/spine Extremities: Radial, dorsalis pedis, and posterior tibial pulses are intact and symmetrical, no edema noted in the BL LE's Skin: Warm, dry, no rashes , lesions, or scars noted Neuro: Alert and oriented to person, place, month, year, and president, no focal defects, no tremors noted Psych: mildly anxious but in No acute distress, pleasant, calm and cooperative during the exam Results & Data Results & Data Vital Signs (Past 12 Hours) Vital Signs Temp Pulse Pulse Resp BP BP Pulse Ox 01/16/24 12:10 118 H 19 126/80 100 01/16/24 11:56 111 H 01/16/24 10:51 97 01/16/24 10:46 36.8 C 116 H 20 118/91 98 O2 Del Method 01/16/24 12:10 Room Air 01/16/24 11:56 01/16/24 10:51 Room Air 01/16/24 10:46 Room Air Laboratory Results Abnormal lab results 01/16/24 Range/Units 10:39 Lymph # (Auto) 0.97 L (1.20-3.40) K/uL Diagnostic Findings Abdomen/Pelvis CT 01/16/24 10:[address] WITH IV CONTRAST CT DOSE: 1338.59 mGy.cm HISTORY: Acute generalized abdominal pain with reported GI bleed UGIB TECHNIQUE: Multiaxial CT images of the abdomen and pelvis were performed following the IV administration of 90 cc of Optiray, A dose lowering technique was utilized adhering to the principles of ALARA. COMPARISON STUDY: 05/15/2023 FINDINGS: Clear lung bases. No free air. Spleen is upper limits of normal in size at 13 cm. Unremarkable pancreas and adrenal glands. Cholecystectomy. Hepatic steatosis. Patency of the hepatic and portal veins. Unremarkable kidneys. Partially decompressed urinary bladder. Nonspecific mild heterogeneity of the uterus. Probable uterine fibroid measuring 2 cm on image 315 series 3. Unremarkable abdominal aorta and IVC. No lymphadenopathy. No bowel obstruction. Mild colonic fecal retention. Scattered large and small bowel air-fluid levels. Circumferential wall thickening of the colon is most pronounced in the ascending and transverse segments. The appendix appears to be not inflamed. Areas of mild small bowel wall thickening also noted. Unremarkable soft tissues. No acute fracture. IMPRESSION: 1. No bowel obstruction or pneumoperitoneum. 2. The appendix appears uninflamed. 3. Findings compatible with a nonspecific enterocolitis with diarrheal illness. 4. Cholecystectomy. 5. Probable fibroid uterus. ACT 112: Negative or not required by law. The above report was generated using voice recognition software. It may contain grammatical, syntax or spelling errors. Electronically signed by: August Chou M.D. 01/16/2024 11:57 AM Chest X-Ray 01/16/24 10:46 XR chest 1V portable HISTORY: 33 years-old Female GIB acute GI bleed COMPARISON: 08/04/2021 TECHNIQUE: AP view of the chest FINDINGS: Cardiomediastinal and hilar silhouettes are within normal limits. There is no pneumothorax, pleural effusion, airspace consolidation or pulmonary edema. Bones appear grossly intact. IMPRESSION: No acute process. ACT 112: Negative or not required by law. The above report was generated using voice recognition software. It may contain grammatical, syntax or spelling errors. Electronically signed by: August Chou M.D. 01/16/2024 11:18 AM ECG Additional Comments: Obtaining at the time of admission Code Status & VTE Plan Code Status Full code VTE Prophylaxis Plan VTE Prophylaxis will be ordered: Yes Supervising Physician Co-Signing Physician Notes Patient was seen and examined independently I discussed the case with Anil FENTON I reviewed pertinent past medical social family history and also the plan of care and agree with the plan of care. 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 She describes having melena the day this occurred and was given evaluation with concern for recurrence of erosive esophagitis and GI bleeding. Patient's had metaplasia in the past on biopsy. Patient also was found on CT scan to have moderate stool load. Her pain is diffuse across her abdomen is unclear whether this could be recurrence or of erosive salpingitis as they had recently reduced her Protonix from twice daily to daily. Patient had self increased her Protonix a few days prior to this event as she was having increasing nausea and abdominal discomfort. (Her daughter also has been ill at home) In the ER she is hemodynamically stable she remains fairly uncomfortable her hemoglobin is also stable. Exam is nonfocal and her pain is not necessarily mostly consistent in the with discomfort in the epigastric area Patient be brought to our facility with concern for gastritis with possible also abdominal pain from constipation which is seen on CT scan. Patient is on twice daily Protonix adding sucralfate as needed morphine and antiemetics. The patient will also have IV fluids and cathartic agents to improve bowel motility Any exceptions will be noted below PG Care Time/CCT Total # of Minutes Spent Total Time Spent with Patient: Total time spent is greater than 50% in coordination of care (as documented) at patient's floor/unit and/or counseling patient: C[place] [id number] INT INP/OBS CARE 3/75MIN Patient Type Established Medical Decision Making High Complexity Diagnoses Tachycardia R00.0 Acute upper gastrointestinal bleeding K92.2 ADHD F90.9 Erosive gastritis K29.60
[2024-01-16] MEDS: MoRPHine SULFATE 4 MG/ML 1 ML CARP\\VIAL IV PRN ×2 (12:57→19:38)
[2024-01-16 13:09] LABS: Appearance Urine Clear (Clear); Bilirubin Urine Negative (Negative); Blood Urine Negative (Negative); Color Urine Yellow; Glucose Urine UA Negative (Negative); Ketones Urine Negative (Negative); Leukocyte Esterase Urine Negative (Negative); Nitrite Urine Negative (Negative); Protein Urine Negative (Negative); Specific Gravity Urine > 1.045 (1.000-1.030); Urobilinogen Urine Negative (Negative)
[2024-01-16] MEDS: LACTATED RINGER'S 1,000 ML IV ONE (13:46)
[2024-01-16] MEDS: PROMETHAZINE 12.5 MG/50.5 ML BAG IV STA (13:59)
[2024-01-16 14:05] LABS: Magnesium 1.7 mg/dl (1.7-2.4)
[2024-01-16] MEDS: ACETAMINOPHEN 1,000 MG/100 ML VIAL IV PRN (14:23)
[2024-01-16] MEDS: DEXTROAMPHETAMINE/AMPHETAMIME IR 5 MG TAB PO SCH (15:35)
[2024-01-16] MEDS: POLYETHYLENE (MIRALAX) 17 GM PACK PO ONE (15:48)
[2024-01-16] MEDS: LACTATED RINGER'S 1,000 ML IV SCH (16:11)
[2024-01-16] MEDS: SUCRALFATE 1 GM TAB PO SCH (17:02)
[2024-01-16 19:15] LABS: Hematocrit (blood only) 33.1 % (37.0-47.0); Hemoglobin 11.3 g/dl (12.0-16.0); Mean Corpuscular Hemoglobin 29.7 pg (25.0-34.0); Mean Corpuscular Hgb Conc 34.1 g/dL (32.0-36.0); Mean Corpuscular Volume 86.9 fL (80.0-100.0); Mean Platelet Volume 10.2 fL (9.4-12.4); Platelet Count 174 K/uL (130-400); RDW Coefficient of Variation 12.6 % (11.5-14.5); RDW Standard Deviation 40.1 fL (36.4-46.3); Red Blood Count 3.81 M/uL (4.20-5.40); White Blood Count 5.68 K/ul (4.8-10.8)
[2024-01-16] MEDS: PANTOprazole 40 MG in SYRINGE 0 ML IV SCH (20:57)
[2024-01-17 00:29] LABS: Hematocrit (blood only) 31.6 % (37.0-47.0); Hemoglobin 10.8 g/dl (12.0-16.0); Mean Corpuscular Hemoglobin 29.9 pg (25.0-34.0); Mean Corpuscular Hgb Conc 34.2 g/dL (32.0-36.0); Mean Corpuscular Volume 87.5 fL (80.0-100.0); Mean Platelet Volume 10.1 fL (9.4-12.4); Platelet Count 140 K/uL (130-400); RDW Coefficient of Variation 12.6 % (11.5-14.5); RDW Standard Deviation 40.4 fL (36.4-46.3); Red Blood Count 3.61 M/uL (4.20-5.40); White Blood Count 4.09 K/ul (4.8-10.8)
[2024-01-17 06:38] LABS: Hematocrit (blood only) 33.8 % (37.0-47.0); Hemoglobin 11.1 g/dl (12.0-16.0); Mean Corpuscular Hemoglobin 29.1 pg (25.0-34.0); Mean Corpuscular Hgb Conc 32.8 g/dL (32.0-36.0); Mean Corpuscular Volume 88.5 fL (80.0-100.0); Platelet Count 154 K/uL (130-400); RDW Coefficient of Variation 12.6 % (11.5-14.5); RDW Standard Deviation 40.8 fL (36.4-46.3); Red Blood Count 3.82 M/uL (4.20-5.40); White Blood Count 3.51 K/ul (4.8-10.8)
[2024-01-17 07:07] LABS: Albumin Level 3.8 gm/dl (3.4-5.0); Bilirubin,Total 0.3 mg/dl (0.2-1.0); Calcium 8.3 mg/dl (8.6-10.3); Potassium 3.5 mmol/L (3.5-5.1)
[2024-01-17 07:13] LABS: Albumin Globulin Ratio 1.7 (0.9-2); BUN Creatinine Ratio 8.7 (10-20); Est GFR (African American) 132.6 ml/min; Est GFR (Non-African American) 114.4 ml/min; Globulin 2.3 gm/dl (2.5-4.0); Total Protein 6.1 gm/dl (6.0-8.3)
[2024-01-17 07:39] LABS: Prothrombin Time 10.7 Seconds (9.0-12.0)
--- NOTE | 2024-01-17 08:35 | Electrocardiogram Report ---
Test Reason : Blood Pressure : / mmHG Vent. Rate : 106 BPM Atrial Rate : 106 BPM P-R Int : 118 ms QRS Dur : 076 ms QT Int : 344 ms P-R-T Axes : 042 033 -01 degrees QTc Int : 456 ms Sinus tachycardia with short IN Nonspecific T wave abnormality Abnormal ECG When compared with ECG of 21-MAR-2021 11:51, HR has increased by 24 bpm Nonspecific T wave abnormality, worse in Anterolateral leads Confirmed by Nils Carlos ([id number]) on 01/17/2024 8:34:43 AM Referred By: REFERRED SELF Confirmed By:Nils Carlos
--- NOTE | 2024-01-17 10:24 | Gastrointestinal Consultation ---
Date of Consultation January 17, 2024 Assessment & Plan (1) Chronic diarrhea: She has CT findings and symptoms of an acute infectious enteritis. She did have melenic stools and this could be related to that or to bleeding from UGI source. She has no risk factors for ulcer disease as she does take protonix daily and she denies NSAIDs. Currently her stools are liquid and clear. For now I would continue to observe her as I think most of her symptoms are related to an acute infectious process. If conditions change, or if she develops further melena then I think EGD may be appropriate. 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 She took zofran to manage that and then the next day she passed a dark stool. She denies taking pepto bismol around the time of this dark stool. This was hemocculted and was hemoccult positive. She went to ER and was given miralax for fecal retention seen on CT scan. Also noted on CT scan was findings of colitis in right colon. She has had profuse diarrhea since taking the miralax. She no longer has dark stools and they seem to be mainly bile now. She does have a pain in her left upper abdomen. She says she has a history of erosive gastritis and has been on protonix for some time now. She has a history of intermittent problems with pain and diarrhea and had an EGD and a colonoscopy in the last few years. She takes dicyclomine as needed. She ate a turkey sandwich from a restaurant the night prior to this starting and she has been working in the ED as well. Allergies Allergy/AdvReac Type Severity Reaction Status Date / Time ennis Allergy Severe Anaphylaxis Verified 12/07/23 08:49 adhesive Allergy Intermediate redness,swe Verified 12/07/23 08:49 lling egg Allergy Intermediate Rash Verified 12/07/23 08:49 Influenza Virus Vaccines Allergy Intermediate swelling Verified 12/07/23 08:49 of arm latex Allergy Mild rash Verified 12/07/23 08:49 banana AdvReac Mild Dry Mouth Verified 12/07/23 08:49 Home Medications Medication Instructions Recorded Confirmed Type acetaminophen 325 mg capsule 650 mg PO Q4H PRN Pain 04/14/19 01/16/24 History (Tylenol) riboflavin (vitamin B2) 400 mg 400 mg PO QAM 04/14/19 01/16/24 History tablet cholecalciferol (vitamin D3) 50 2,000 units PO QAM 04/19/19 01/16/24 History mcg (2,000 unit) capsule omega-3 fatty acids 1,000 mg 1,000 mg PO QAM 04/19/19 01/16/24 History capsule magnesium 250 mg tablet 250 mg PO QAM 07/22/19 01/16/24 History flaxseed oil 1,000 mg capsule 1,000 mg PO QAM 07/18/21 01/16/24 History dicyclomine 10 mg capsule 10 mg PO QID #30 caps 06/09/23 01/16/24 Rx dextroamphetamine-amphetamine 5 mg 5 mg PO BID 07/17/23 01/16/24 History tablet (Adderall) pantoprazole 40 mg tablet,delayed 40 mg PO BID #60 tabs 07/27/23 01/16/24 Rx release buspirone 5 mg tablet 15 mg PO DAILY Anxiety 12/03/23 01/16/24 History ondansetron 4 mg disintegrating 4 mg PO Q8H PRN Nausea #30 tabs 12/07/23 01/16/24 Rx tablet fluoxetine 40 mg capsule 40 mg PO HS 01/16/24 01/16/24 History Patient History Medical History Palpitations has worn heart monitor in past > nothing conclusive History of COVID-2020 ADHD Swallowing difficulty reason for up coming colon/EGD Difficult airway for intubation small airway--had to be kept overnight after cholecystectomy History of anesthesia reaction difficulty waking Symptoms consistent with irritable bowel syndrome reason for up coming colon/EGD Anxiety Depression History of anemia Migraine Surgical History History of esophagogastroduodenoscopy (EGD) History of cholecystectomy (~2009) Family History Grandmother (Maternal) Melanoma Myocardial infarction Aunt Aneurysm and dissection of heart Father Diabetes Melanoma Hypertension TIA (transient ischemic attack) Brother Gallbladder disease Mother Diabetes Other No family history of adverse response to anesthesia Denies family history of Colon cancer Ovarian cancer Prostate cancer Breast cancer Social History Smoking Status: Never smoker Second Hand Exposure: No; Do You Dip or Chew Tobacco: No; Tobacco Cessation Education Requested by Patient: No Hx Alcohol Use: No Hx Substance Use: No Preferred Language: Belarusian Communication Ability: Effective Visual Impairment: No Limitations Hearing Ability: Normal Pipe Joints Supervisor Required: No Beliefs That Will Affect Care: None marital status: Single Current Living Situation: Spouse and Family Current Living Situation Comment: Lives with and 3 kids current occupational status: employed 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[employer] How many Children do You have: 2 Other Information That Helps Us Care for You: No Feels Safe at Home: Yes Childhood Exposure to Second-Hand Smoke: No Diet: regular caffeine: No during the past year weight has: decreased > 10 lbs Dental Care, Regularly: No Physical Activity Frequency: Daily Seatbelt Use: always Sunscreen Use: Yes Assistive Devices: Contacts and Glasses Review of Systems Review of Systems: All systems reviewed & are unremarkable except as noted in HPI & below Physical Exam Constitutional: WD/WN, vitals as above no acute distress Eyes: PERRL, conjunctivae normal, anicteric sclerae ENMT: external ear and nose normal, oropharynx normal Neck: trachea midline, no thyromegaly Respiratory: normal respiratory effort, lungs clear to auscultation Cardiovascular: RRR, no murmur, no edema Gastrointestinal (Abdomen): normal bowel sounds, soft, nontender, no hepatosplenomegaly Musculoskeletal: Extremities: no cyanosis and no clubbing Skin: no rashes, warm and dry Neurologic: PERRL, EOMI, accommodation nl, no face palsy, no dysarthria Psychiatric: Orientation: alert and oriented x 3 Results & Data Vital Signs (Past 12 Hours) Vital Signs Temp Pulse Pulse Resp BP Pulse Ox O2 Del Method 01/17/24 07:36 36.7 C 71 18 102/68 98 Room Air 01/17/24 03:38 36.7 C 92 H 18 97/64 L 97 Room Air 01/16/24 23:54 89 01/16/24 23:20 36.6 C 101 H 16 99/64 L 98 Room Air Laboratory Results 01/17/24 01/17/2424 Range/Units 06:09 00:18 18:46 WBC 3.51 L 4.09 L 5.68 (4.8-10.8) K/ul RBC 3.82 L 3.61 L 3.81 L (4.20-5.40) M/uL Hgb 11.1 L 10.8 L 11.3 L (12.0-16.0) g/dl Hct 33.8 L 31.6 L 33.1 L (37.0-47.0) % MCV 88.5 87.5 86.9 (80.0-100.0) fL MCH 29.1 29.9 29.7 (25.0-34.0) pg MCHC 32.8 34.2 34.1 (32.0-36.0) g/dL RDW Std Deviation 40.8 40.4 40.1 (36.4-46.3) fL RDW Coeff of Patrick 12.6 12.6 12.6 (11.5-14.5) % Plt Count 154 140 174 (130-400) K/uL MPV 10.0 10.1 10.2 (9.4-12.4) fL Immature Gran % (Auto) % Neut % (Auto) % Lymph % (Auto) % [place] % (Auto) % Eos % (Auto) % Baso % (Auto) % Neut # (Auto) (1.40-6.50) K/uL Lymph # (Auto) (1.20-3.40) K/uL [place] # (Auto) (0.11-0.59) K/uL Eos # (Auto) (0.00-0.50) K/uL Baso # (Auto) (0.00-0.20) K/uL Immature Gran # (Auto) (0.01-0.20) K/uL PT 10.7 (9.0-12.0) Seconds INR 1.0 (0.9-1.1) Sodium 137 (136-145) mmol/L Potassium 3.5 (3.5-5.1) mmol/L Chloride 107 (98-107) mmol/L Carbon Dioxide 28 (21-32) mmol/L Anion Gap 2 L (3-11) BUN 6 (6-23) mg/dl Creatinine 0.69 (0.6-1.2) mg/dl Est Cr Clr Drug Dosing 123.0 ml/min Est GFR ( Amer) 132.6 ml/min Est GFR (Non-Af Amer) 114.4 ml/min BUN/Creatinine Ratio 8.7 L (10-20) Glucose 83 (70-99(Fasting)) mg/dl Calcium 8.3 L (8.6-10.3) mg/dl Magnesium (1.7-2.4) mg/dl Total Bilirubin 0.3 (0.2-1.0) mg/dl AST 21 (13-39) U/L ALT 36 (7-52) U/L Alkaline Phosphatase 59 (34-104) U/L Total Protein 6.1 (6.0-8.3) gm/dl Albumin 3.8 (3.4-5.0) gm/dl Globulin 2.3 L (2.5-4.0) gm/dl Albumin/Globulin Ratio 1.7 (0.9-2) Lipase (11-82) U/L HCG, Qual (Negative) Urine Color Urine Appearance (Clear) Urine pH (4.5-7.5) Ur Specific [place] (1.000-1.030) Urine Protein (Negative) Urine Glucose (UA) (Negative) Urine Ketones (Negative) Urine Blood (Negative) Urine Nitrite (Negative) Urine Bilirubin (Negative) Urine Urobilinogen (Negative) Ur Leukocyte Esterase (Negative) Blood Type Antibody Screen 01/16/24 01/16/24 Range/Units 12:40 10:39 WBC 5.86 (4.8-10.8) K/ul RBC 4.50 (4.20-5.40) M/uL Hgb 13.3 (12.0-16.0) g/dl Hct 39.2 (37.0-47.0) % MCV 87.1 (80.0-100.0) fL MCH 29.6 (25.0-34.0) pg MCHC 33.9 (32.0-36.0) g/dL RDW Std Deviation 40.2 (36.4-46.3) fL RDW Coeff of Patrick 12.6 (11.5-14.5) % Plt Count 193 (130-400) K/uL MPV 10.3 (9.4-12.4) fL Immature Gran % (Auto) 0.3 % Neut % (Auto) 74.5 % Lymph % (Auto) 16.6 % [place] % (Auto) 6.8 % Eos % (Auto) 1.5 % Baso % (Auto) 0.3 % Neut # (Auto) 4.36 (1.40-6.50) K/uL Lymph # (Auto) 0.97 L (1.20-3.40) K/uL [place] # (Auto) 0.40 (0.11-0.59) K/uL Eos # (Auto) 0.09 (0.00-0.50) K/uL Baso # (Auto) 0.02 (0.00-0.20) K/uL Immature Gran # (Auto) 0.02 (0.01-0.20) K/uL PT (9.0-12.0) Seconds INR (0.9-1.1) Sodium 136 (136-145) mmol/L Potassium 3.5 (3.5-5.1) mmol/L Chloride 101 (98-107) mmol/L Carbon Dioxide 27 (21-32) mmol/L Anion Gap 8 (3-11) BUN 14 (6-23) mg/dl Creatinine 0.76 (0.6-1.2) mg/dl Est Cr Clr Drug Dosing 110.8 ml/min Est GFR ( Amer) 119.5 ml/min Est GFR (Non-Af Amer) 103.1 ml/min BUN/Creatinine Ratio 18.4 (10-20) Glucose 96 (70-99(Fasting)) mg/dl Calcium 9.3 (8.6-10.3) mg/dl Magnesium 1.7 (1.7-2.4) mg/dl Total Bilirubin 0.3 (0.2-1.0) mg/dl AST 35 (13-39) U/L ALT 52 (7-52) U/L Alkaline Phosphatase 65 (34-104) U/L Total Protein 7.5 (6.0-8.3) gm/dl Albumin 4.7 (3.4-5.0) gm/dl Globulin 2.8 (2.5-4.0) gm/dl Albumin/Globulin Ratio 1.7 (0.9-2) Lipase 34 (11-82) U/L HCG, Qual Negative (Negative) Urine Color Yellow Urine Appearance Clear (Clear) Urine pH 6.0 (4.5-7.5) Ur Specific [place] > 1.045 H (1.000-1.030) Urine Protein Negative (Negative) Urine Glucose (UA) Negative (Negative) Urine Ketones Negative (Negative) Urine Blood Negative (Negative) Urine Nitrite Negative (Negative) Urine Bilirubin Negative (Negative) Urine Urobilinogen Negative (Negative) Ur Leukocyte Esterase Negative (Negative) Blood Type AB Positive Antibody Screen NEGATIVE Diagnostic Findings Abdomen/Pelvis CT 01/16/24 10:[address] WITH IV CONTRAST CT DOSE: 1338.59 mGy.cm HISTORY: Acute generalized abdominal pain with reported GI bleed UGIB TECHNIQUE: Multiaxial CT images of the abdomen and pelvis were performed following the IV administration of 90 cc of Optiray, A dose lowering technique was utilized adhering to the principles of ALARA. COMPARISON STUDY: 05/15/2023 FINDINGS: Clear lung bases. No free air. Spleen is upper limits of normal in size at 13 cm. Unremarkable pancreas and adrenal glands. Cholecystectomy. Hepatic steatosis. Patency of the hepatic and portal veins. Unremarkable kidneys. Partially decompressed urinary bladder. Nonspecific mild heterogeneity of the uterus. Probable uterine fibroid measuring 2 cm on image 315 series 3. Unremarkable abdominal aorta and IVC. No lymphadenopathy. No bowel obstruction. Mild colonic fecal retention. Scattered large and small bowel air-fluid levels. Circumferential wall thickening of the colon is most pronounced in the ascending and transverse segments. The appendix appears to be not inflamed. Areas of mild small bowel wall thickening also noted. Unremarkable soft tissues. No acute fracture. IMPRESSION: 1. No bowel obstruction or pneumoperitoneum. 2. The appendix appears uninflamed. 3. Findings compatible with a nonspecific enterocolitis with diarrheal illness. 4. Cholecystectomy. 5. Probable fibroid uterus. ACT 112: Negative or not required by law. The above report was generated using voice recognition software. It may contain grammatical, syntax or spelling errors. Electronically signed by: August Chou M.D. 01/16/2024 11:57 AM Chest X-Ray 01/16/24 10:46 XR chest 1V portable HISTORY: 33 years-old Female GIB acute GI bleed COMPARISON: 08/04/2021 TECHNIQUE: AP view of the chest FINDINGS: Cardiomediastinal and hilar silhouettes are within normal limits. There is no pneumothorax, pleural effusion, airspace consolidation or pulmonary edema. Bones appear grossly intact. IMPRESSION: No acute process. ACT 112: Negative or not required by law. The above report was generated using voice recognition software. It may contain grammatical, syntax or spelling errors. Electronically signed by: August Chou M.D. 01/16/2024 11:18 AM
[2024-01-17] MEDS: POLYETHYLENE (MIRALAX) 17 GM PACK PO SCH (11:00)
--- NOTE | 2024-01-17 15:27 | Discharge Summary ---
Date of Service January 17, 2024 Admission HPI Per Admitting Provider Latasha is a 33 year old female with a PMH significant for erosive gastritis, chronic diarrhea, palpitations, ADHD, anxiety who presented to the [facility] ED on 01/16/24 with complaints of abdominal pain and melena. She was noted to be tachycardic with a HR in the 110's but was otherwise stable. Labs including CBC, CMP, and lipase were unremarkable besides a lymphocyte count of 0.97. Chest xray was negative for acute findings. CT of the abd/pelvis w/IV con was read as "1. No bowel obstruction or pneumoperitoneum. 2. The appendix appears uninflamed. 3. Findings compatible with a nonspecific enterocolitis with diarrheal illness. 4. Cholecystectomy. 5. Probable fibroid uterus. ". Prior to admission the patient was given a dose of Ceftriaxone, pantoprazole bolus and drip started, 1L NSS, 4mg IV morphine, 4mg IV zofran, 1mg IV ativan. The ED stated that her Hemoccult screen was positive. We were asked to admit the patient for ongoing monitoring and management of possible upper GI bleed. At the time of the exam the patient was sitting in bed in no acute distress. She states that she started to develop nausea approximately 48 hours ago. Since then she has also developed epigastric/LUQ pain with radiation to the back, as-well-as BL lower abdominal pain. This am she had an episode of melena but denies bright red stool and/or diarrhea. She denies using tobacco, alcohol, NSAID's, pepto-bsimol, or iron recently. Her pain is exacerbated with lying flat. She has had poor oral intake over the past 24 hours with her symptoms. She denies recent fever, chills, chest pain, SOB, cough, vomiting/hemoptysis, dysuria, hematuria, LE swelling, and recent trauma. She confirms that she decreased her dose of PO pantoprazole from BID to daily after her last GI clinic visit on 12/07/23. Review of her last colonoscopy and EGD on 07/27/23 show findings consistent with gastritis and non-bleeding internal hemorrhoids. The patient was last seen in the GI clinic on 12/07/23, her dose of Pantoprazole was decreased from 40 mg B ID to daily due to improved symptoms. Please refer to Dr. Guzman's attestation for any changes to the treatment plan. Principal Diagnosis Gastritis with concern for GI bleed Constipation with overflow diarrhea Discharge Exam Awake alert appropriate. Patient has no complaints or problems on the day of discharge with exception of mild abdominal pain which is improved and able to be tolerated. Discharge Data Allergies Allergy/AdvReac Type Severity Reaction Status Date / Time ennis Allergy Severe Anaphylaxis Verified 12/07/23 08:49 adhesive Allergy Intermediate redness,swe Verified 12/07/23 08:49 lling egg Allergy Intermediate Rash Verified 12/07/23 08:49 Influenza Virus Vaccines Allergy Intermediate swelling Verified 12/07/23 08:49 of arm latex Allergy Mild rash Verified 12/07/23 08:49 banana AdvReac Mild Dry Mouth Verified 12/07/23 08:49 Consultations 01/16/24 12:41 ED Decision to Admit Stat 01/16/24 13:17 Consult Gastroenterology Routine Ordered Studies 01/16/24 10:46 CT abd pelvis IV con only Stat Hospital Course (1) Acute upper gastrointestinal bleeding: pt with history of erosive gastritis, concern with melena hgb has been stable cannot rule out bleeding but is now stable, continue on protonix bid and 3 days of carafate with short outpt referral to GI medicine discussed risk factors for GIB (2) ADHD: -Continue Adderral (3) Overflow diarrhea: Pt with moderate constipation and diarrhea, will encourage cathartic with concern for enteritis likely viral given recent child also ill at home, should be self limited Total Time Total Time Spent Total Time Spent (In Minutes): It required greater than 30 minutes to prepare this patient for discharge. Discharge Plan Discharge Items Patient Disposition: Home - Self-Care Reason For Visit: ABDOMINAL PAIN, POSSIBLE UPPER GI BLEED Discharge Diagnosis: gastritis colitis constipation Activity: Resume your previous activity Non-emergency contact: Primary Care Provider and Fagoting Machine Operator Call non-emergency contact if: your symptoms worsen Follow-up/Referrals: Andria Salazar CRNP [Nurse Practitioner] - Salena Castaneda MD [Primary Care Provider] - Diet: Regular Addtl Attending Provider Instructions: please avoid citrus or caffeine and alcohol slowly advance diet and take your medications are Rx encourage bowel movement by taking Miralax or generic every 4 hours until you have a large bowel movement Please take time to work on reducing stress from work, one millie maybe [employer] or similar apps to help reduce stressors as stress can lead to ulcers and stomach inrritation Pending Studies at Discharge: No Stand-Alone Forms: My Richard [facility], Work/School Release, Smoking Cessation Medications and DC Order Prescriptions: New sucralfate 1 gram Tablet 1 g PO QID Qty: 12 0RF Continued dicyclomine 10 mg capsule 10 mg PO QID Qty: 30 0RF riboflavin (vitamin B2) 400 mg tablet 400 mg PO QAM acetaminophen [Tylenol] 325 mg capsule 650 mg PO Q4H PRN (Reason: Pain) omega-3 fatty acids 1,000 mg capsule 1,000 mg PO QAM cholecalciferol (vitamin D3) 2,000 unit capsule 2,000 units PO QAM magnesium 250 mg tablet 250 mg PO QAM buspirone 5 mg tablet 15 mg PO DAILY ondansetron 4 mg tablet,disintegrating 4 mg PO Q8H PRN (Reason: Nausea) Qty: 30 2RF flaxseed oil 1,000 mg capsule 1,000 mg PO QAM Rx Instructions: administer with a meal dextroamphetamine-amphetamine [Adderall] 5 mg Tablet 5 mg PO BID pantoprazole 40 mg tablet,delayed release (DR/EC) 40 mg PO BID Qty: 60 5RF fluoxetine 40 mg capsule 40 mg PO HS Discharge Orders: Discharge Order (Routine); Ordered 01/17/24 Ordered By: Markos Guzman Admission Data Admit Date/Time: 01/16/24 12:50 Attending Provider: Markos Guzman Admit Provider: Markos Guzman Primary Care Provider: Salena Castaneda Other Providers: Markos Guzman; Amaury Chen Jr Other Interventions: Discharge Summary Assessment (RN) Last Done: 01/17/24 13:53 Coding Level of Care Code 96036 INP/OBS DISCH >30 MIN Diagnoses Acute upper gastrointestinal bleeding K92.2 ADHD F90.9 Overflow diarrhea R19.7
== END 2024-01-17 15:14 | disposition home or self-care (01) ==
LOC: ED 10:34 → INTOOBSV 12:50 → EDINP 12:50 → 2W 14:12

== ENCOUNTER 2025-01-24 01:27 | Observation (INO) ==
[2025-01-24 02:12] LABS: Basophils # (auto) 0.05 K/uL (0.00-0.20); Basophils % (auto) 0.5 %; Eosinophils % (auto) 2.1 %; Hematocrit (blood only) 39.4 % (37.0-47.0); Hemoglobin 13.2 g/dl (12.0-16.0); Immature Granulocytes # (auto) 0.03 K/uL (0.01-0.20); Immature Granulocytes % (auto) 0.3 %; Lymphocytes # (auto) 2.78 K/uL (1.20-3.40); Lymphocytes % (auto) 29.6 %; Mean Corpuscular Hemoglobin 29.6 pg (25.0-34.0); Mean Corpuscular Hgb Conc 33.5 g/dL (32.0-36.0); Mean Corpuscular Volume 88.3 fL (80.0-100.0); Monocytes # (auto) 0.56 K/uL (0.11-0.59); Neutrophils # (auto) 5.76 K/uL (1.40-6.50); Neutrophils % (auto) 61.5 %; Platelet Count 244 K/uL (130-400); RDW Coefficient of Variation 12.3 % (11.5-14.5); RDW Standard Deviation 39.8 fL (36.4-46.3); Red Blood Count 4.46 M/uL (4.20-5.40); White Blood Count 9.38 K/ul (4.8-10.8)
[2025-01-24 02:15] LABS: Appearance Urine Clear (Clear); Bilirubin Urine Negative (Negative); Blood Urine Negative (Negative); Color Urine Yellow; Glucose Urine UA Negative (Negative); Ketones Urine Negative (Negative); Leukocyte Esterase Urine Negative (Negative); Nitrite Urine Negative (Negative); Protein Urine Negative (Negative); Specific Gravity Urine 1.022 (1.000-1.030); Urobilinogen Urine Negative (Negative); pH Urine 6.5 (4.5-7.5)
[2025-01-24 02:30] LABS: Alanine Aminotransferase 17 U/L (7-52); Albumin Globulin Ratio 1.5 (0.9-2); Albumin Level 4.7 gm/dl (3.4-5.0); Alkaline Phosphatase 65 U/L (34-104); Anion Gap 6 (3-11); Aspartate Aminotransferase 17 U/L (13-39); BUN Creatinine Ratio 23.6 (10-20); Bilirubin,Total 0.2 mg/dl (0.2-1.0); Blood Urea Nitrogen 17 mg/dl (6-23); Calcium 9.8 mg/dl (8.6-10.3); Carbon Dioxide 25 mmol/L (21-32); Chloride 103 mmol/L (98-107); Globulin 3.2 gm/dl (2.5-4.0); Glucose 115 mg/dl (70-99(Fasting)); Lipase 66 U/L (11-82); Potassium 3.9 mmol/L (3.5-5.1); Sodium 134 mmol/L (136-145); Total Protein 7.9 gm/dl (6.0-8.3)
[2025-01-24] MEDS: ACETAMINOPHEN 1,000 MG/100 ML VIAL IV STA (02:30)
[2025-01-24] MEDS: ALUMINUM/MAGNESIUM SUSP 30 ML UDC PO STA (02:31)
[2025-01-24] MEDS: PANTOprazole 40 MG/10 ML SYR IV ONE ×2 (02:31→05:42)
[2025-01-24] MEDS: SODIUM CHLORIDE 0.9% 1,000 ML IV ONE (02:32)
[2025-01-24 02:38] LABS: Pregnancy Test, Serum Negative (Negative)
[2025-01-24] MEDS: MoRPHine SULFATE 10 MG/ML CARP/VIAL IV STA (02:45)
[2025-01-24] MEDS: FAMOTIDINE 20MG IV PUSH 20 MG/5 ML SYR IV STA (02:48)
[2025-01-24] MEDS: ONDANSETRON INJ 2 MG/ML 2 ML VIAL IV STA (02:48)
[2025-01-24] MEDS: OPTIRAY 320 100ml IV ONE (03:10)
--- NOTE | 2025-01-24 04:08 | CT Scan Report ---
EXAM: CT abd pelvis IV con only CLINICAL HISTORY: Upper abd pain. Hx ulcers. TECHNIQUE: Contiguous axial images were obtained from the level of the diaphragm to the pubic symphysis with intravenous contrast. Coronal and sagittal reconstructions were likewise performed and indicated to increase the sensitivity for detecting clinically relevant pathology. If IV contrast material had not been administered, the likelihood of detecting abnormalities relevant to the patient's condition would have been substantially decreased. CT scan was performed according to ALARA (as low as reasonable achievable). COMPARISON: February 06 FINDINGS: The visualized lung bases are clear. The liver is normal in size and attenuation. No focal liver lesions are seen. There is no intra or extrahepatic biliary ductal dilatation. Hepatic vasculature is patent. Status post-cholecystectomy. The spleen, pancreas, and adrenal glands are unremarkable. The kidneys are normal in size and attenuation. There is no hydronephrosis or perinephric fat stranding. No renal calculi or renal masses are identified. The ureters are normal in caliber and no ureteral calculi are seen. The bladder is normal in contour. Stable small uterine fibroid seen. No focal or diffuse bowel wall thickening or evidence of bowel obstruction is identified. The appendix is visualized in the right lower quadrant and appears within normal limits. Abdominal and pelvic vasculature is patent. No adenopathy or fluid collections are seen. No aggressive appearing osseous lesions are identified. IMPRESSION: 1. Status post-cholecystectomy. 2. Hepatic steatosis. -stable. 3. Stable small uterine fibroid seen. 4. No other new interval abnormality since prior study. Electronically signed by Nicolas Alvarenga 01-24-2025 04:08 AM
[2025-01-24 04:53] LABS: Troponin I High Sensitivity < 2.3 pg/ml (0-14)
--- NOTE | 2025-01-24 05:07 | Emergency Department Note ---
History of Present Illness General Chief complaint: Abdominal Pain Stated complaint: ABDOMINAL PAIN Time Seen by Provider: 01/24/25 01:43 History of Present Illness Maximum Pain Intensity: 7 This is a 34-year-old female presenting to the emergency department for evaluation of severe epigastric abdominal pain. Patient was awoken with symptoms tonight that she rates a 7/10 at best and a 10/10 at worst. 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 The patient has a history of GI issues with previous ulcerations and erosive gastritis on endoscopy last evaluated with scope 18 months ago. She does have Protonix that she takes daily as well as as needed Carafate. Patient is not having any relief with these medicines. She has not had any fever or chills. She is nauseated without vomiting. No difficulty with urination or defecation. There is a past history of cholecystectomy. No significant chest pain or breathing difficulty. Home Medications Medication Instructions Recorded Confirmed Type riboflavin (vitamin B2) 400 mg 400 mg PO QAM 04/14/19 01/24/25 History tablet cholecalciferol (vitamin D3) 50 2,000 units PO QAM 04/19/19 01/24/25 History mcg (2,000 unit) capsule omega-3 fatty acids 1,000 mg 1,000 mg PO QAM 04/19/19 01/24/25 History capsule magnesium 250 mg tablet 250 mg PO QAM 07/22/19 01/24/25 History flaxseed oil 1,000 mg capsule 1,000 mg PO QAM 07/18/21 01/24/25 History dicyclomine 10 mg capsule 10 mg PO QID PRN Abdominal Pain 01/26/24 01/24/25 History dextroamphetamine-amphetamine 5 mg See Rx Instructions .Route .COMPLEX 06/29/24 01/24/25 History tablet (Adderall) sucralfate 1 gram tablet 1 g PO QID PRN Before certain meals 06/29/24 01/24/25 History ondansetron 4 mg disintegrating 4 mg PO Q8H PRN Nausea #30 tabs 09/07/24 01/24/25 Rx tablet pantoprazole 40 mg tablet,delayed 40 mg PO BID #60 tabs 09/07/24 01/24/25 Rx release acetaminophen 500 mg tablet 500 mg PO Q6H PRN Pain 01/24/25 01/24/25 History escitalopram oxalate 5 mg tablet 5 mg PO QAM 01/24/25 01/24/25 History fluoxetine 20 mg capsule 20 mg PO QAM 01/24/25 01/24/25 History Allergies Allergy/AdvReac Type Severity Reaction Status Date / Time ennis Allergy Severe Anaphylaxis Verified 01/24/25 08:16 adhesive Allergy Intermediate redness,swe Verified 01/24/25 08:16 lling egg Allergy Intermediate Rash Verified 01/24/25 08:16 Influenza Virus Vaccines Allergy Intermediate swelling Verified 01/24/25 08:16 of arm latex Allergy Mild rash Verified 01/24/25 08:16 banana AdvReac Mild Dry Mouth Verified 01/24/25 08:16 Past Med/Surg History Problem List (Updated 01/24/25 @ 23:24 by Jose Alberto Irizarry PA-C) Intractable epigastric abdominal pain (Acute) Nausea (Acute) Hyponatremia Intractable nausea Diarrhea Abdominal pain Chronic abdominal pain Ill-defined condition Overflow diarrhea ADHD Erosive gastritis Chronic diarrhea Atypical chest pain Hypertriglyceridemia Fatigue Elevated blood pressure reading without diagnosis of hypertension Difficulty concentrating Drug allergy Allergic rhinitis due to animal hair and dander Headache History of influenza vaccine allergy Migraine without aura Esophageal dysphagia Anxiety Depression History of anemia Migraine Medical History Palpitations has worn heart monitor in past > nothing conclusive History of COVID-19 2020 Swallowing difficulty reason for up coming colon/EGD Difficult airway for intubation small airway--had to be kept overnight after cholecystectomy History of anesthesia reaction difficulty waking Symptoms consistent with irritable bowel syndrome reason for up coming colon/EGD Surgical History History of esophagogastroduodenoscopy (EGD) History of cholecystectomy (~2009) Family History Grandmother (Maternal) Melanoma Myocardial infarction Aunt Aneurysm and dissection of heart Father Diabetes Melanoma Hypertension TIA (transient ischemic attack) Brother Gallbladder disease Mother Diabetes Uterine cancer Other No family history of adverse response to anesthesia Denies family history of Colon cancer Ovarian cancer Prostate cancer Breast cancer Social History Smoking Status: Never smoker Second Hand Exposure: No; Do You Dip or Chew Tobacco: No; Hx Alcohol Use: Yes Alcohol type: beer Alcohol Intake Frequency: Monthly or Less Hx Substance Use: No Preferred Language: Greek Communication Ability: Effective Visual Impairment: No Limitations Hearing Ability: Normal Executive Meeting Manager Required: No Beliefs That Will Affect Care: None marital status: Single Current Living Situation: Spouse and Family Current Living Situation Comment: Lives with and 3 kids current occupational status: employed 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[employer] How many Children do You have: 2 Other Information That Helps Us Care for You: No Feels Safe at Home: Yes Safety Concerns: Feels Safe At This Time Childhood Exposure to Second-Hand Smoke: No Diet: regular caffeine: No during the past year weight has: increased > 10 lbs Dental Care, Regularly: No Physical Activity Frequency: Daily Seatbelt Use: always Sunscreen Use: Yes Assistive Devices: Contacts and Glasses Review of Systems A total of 10 systems reviewed and were otherwise negative Physical Exam Vital Signs Vital Signs - 24 hr 01/24/25 01:30 01/24/25 01:43 01/24/25 02:01 Temperature 37 C Temperature Source Temporal Artery Scan Pulse Rate 107 H 95 H 96 H Pulse Rate from SpO2 Sensor Pulse Rhythm Regular Pulse Strength Normal Respiratory Rate 20 22 20 Respiratory Effort / Characteristics Non-Labored Spontaneous Respiratory Depth Normal Blood Pressure 158/91 H 135/92 123/90 Blood Pressure Mean 113 116 91 Blood Pressure Position Sitting Pulse Oximetry 98 98 98 Oxygen Delivery Method Room Air Sepsis Recent Fever Within 48 Hours No Sepsis New/Unexplained Change in Mental Status N/A Sepsis Action Taken by Nursing No Action Required 01/24/25 02:08 01/24/25 02:46 01/24/25 03:10 Temperature Temperature Source Pulse Rate 85 97 H 83 Pulse Rate from SpO2 Sensor Pulse Rhythm Pulse Strength Respiratory Rate 24 16 Respiratory Effort / Characteristics Respiratory Depth Blood Pressure 128/86 145/87 H Blood Pressure Mean 96 97 Blood Pressure Position Pulse Oximetry 98 97 Oxygen Delivery Method Sepsis Recent Fever Within 48 Hours Sepsis New/Unexplained Change in Mental Status Sepsis Action Taken by Nursing 01/24/25 03:30 01/24/25 04:28 01/24/25 04:30 Temperature Temperature Source Pulse Rate 89 100 H 93 H Pulse Rate from SpO2 Sensor Pulse Rhythm Regular Pulse Strength Respiratory Rate 18 20 16 Respiratory Effort / Characteristics Respiratory Depth Blood Pressure 132/92 119/93 Blood Pressure Mean 102 102 Blood Pressure Position Pulse Oximetry 97 97 96 Oxygen Delivery Method Room Air Sepsis Recent Fever Within 48 Hours Sepsis New/Unexplained Change in Mental Status Sepsis Action Taken by Nursing 01/24/25 05:00 01/24/25 05:01 01/24/25 05:30 Temperature Temperature Source Pulse Rate 94 H 82 84 Pulse Rate from SpO2 Sensor 94 H 84 Pulse Rhythm Pulse Strength Respiratory Rate 13 18 17 Respiratory Effort / Characteristics Respiratory Depth Blood Pressure 95/73 L 95/73 L 119/76 Blood Pressure Mean 80 79 90 Blood Pressure Position Pulse Oximetry 98 97 97 Oxygen Delivery Method Sepsis Recent Fever Within 48 Hours Sepsis New/Unexplained Change in Mental Status Sepsis Action Taken by Nursing VITALS: Vitals are noted on the nurse's note and reviewed by myself. Vital signs stable. GENERAL: Well-developed, well-nourished, white female, who is tearful and uncomfortable appearing on presentation. HEAD: Normocephalic atraumatic. MOUTH: Mucous membranes moist. Tonsils are not enlarged. Pharynx without erythema, blood, or exudate. Uvula midline. Airway patent. NECK: Supple without nuchal rigidity. No lymphadenopathy. No thyromegaly. Cervical spine is nontender. HEART: Regular rate and rhythm without murmurs gallops or rubs. LUNGS: Clear to auscultation bilaterally without wheezes, rales or rhonchi. No retractions or accessory muscle use. ABDOMEN: Positive normal bowel sounds x 4. Soft, with epigastric and left upper quadrant tenderness. No rebound or guarding. No low tenderness. MUSCULOSKELETAL: No muscle atrophy, erythema, or edema noted. Full range of motion in all extremities. Course Administered Medications Famotidine (Famotidine 20 Mg Tab) 20 mg PO BID [facility] Stop: 02/23/25 20:59 Last Admin: 01/24/25 20:01 Dose: 20 mg Documented By: LENKA Acetaminophen (Ofirmev) 1,000 mg in 100 mls @ 400 mls/hr IV Q8H [facility] Stop: 01/27/25 09:59 Last Infusion: 01/24/25 18:11 Dose: Infused Documented By: Admin: 01/24/25 17:51 Dose: 400 mls/hr Documented By: Infusion: 01/24/25 10:34 Dose: Infused Documented By: Admin: 01/24/25 10:06 Dose: 400 mls/hr Documented By: DALE Pantoprazole Sodium (Pantoprazole 40 Mg Tab) 40 mg PO BID [facility] Stop: 02/23/25 20:59 Last Admin: 01/24/25 20:01 Dose: 40 mg Documented By: LENKA Polyethylene Glycol (Polyethylene (Miralax) 17 Gm Pack) 17 gm PO TID PRN PRN Reason: Constipation Stop: 02/23/25 20:17 Last Admin: 01/24/25 22:15 Dose: 17 gm Documented By: LENKA Discontinued Medications Al Hydrox/Mg Hydrox/Simethicone (Aluminum/Magnesium Susp 30 Ml Udc) 30 ml PO NOW STA Stop: 01/24/25 02:21 Last Admin: 01/24/25 02:31 Dose: 30 ml Documented By: HARIS Hydromorphone HCl (Hydromorphone Inj 0.5 Mg/0.5 Ml Syr) 0.25 mg IV NOW STA Stop: 01/24/25 05:30 Last Admin: 01/24/25 05:41 Dose: 0.25 mg Documented By: HARIS Pantoprazole Sodium (Protonix) 40 mg in 10 mls @ 5 mls/min IV NOW ONE Stop: 01/24/25 02:21 Last Admin: 01/24/25 02:31 Dose: 5 mls/min Documented By: HARIS Famotidine (Pepcid 20mg Iv Push) 20 mg in 5 mls @ 2.5 mls/min IV NOW STA Stop: 01/24/25 02:21 Last Admin: 01/24/25 02:48 Dose: 2.5 mls/min Documented By: HARIS Acetaminophen (Ofirmev) 1,000 mg in 100 mls @ 400 mls/hr IV NOW STA Stop: 01/24/25 02:34 Last Infusion: 01/24/25 04:35 Dose: Infused Documented By: Admin: 01/24/25 02:30 Dose: 400 mls/hr Documented By: HARIS Sodium Chloride (Nss) 1,000 mls @ 999 mls/hr IV .Q1H1M ONE Stop: 01/24/25 03:20 Last Infusion: 01/24/25 04:50 Dose: Infused Documented By: Admin: 01/24/25 02:32 Dose: 999 mls/hr Documented By: HARIS Promethazine HCl (Phenergan) 12.5 mg in 50.5 mls @ 202 mls/hr IV NOW STA Stop: 01/24/25 05:12 Last Infusion: 01/24/25 05:58 Dose: Infused Documented By: Admin: 01/24/25 05:15 Dose: 202 mls/hr Documented By: HARIS Pantoprazole Sodium (Protonix) 40 mg in 10 mls @ 5 mls/min IV NOW ONE Stop: 01/24/25 05:18 Last Admin: 01/24/25 05:42 Dose: 5 mls/min Documented By: HARIS Lactated Ringer's (Lr) 1,000 mls @ 80 mls/hr IV .[id number] [facility] Stop: 01/24/25 18:29 Last Infusion: 01/24/25 18:50 Dose: Infused Documented By: Admin: 01/24/25 06:18 Dose: 80 mls/hr Documented By: HARIS Famotidine (Pepcid 20mg Iv Push) 20 mg in 5 mls @ 2.5 mls/min IV Q12H [facility] Stop: 02/23/25 08:59 Last Admin: 01/24/25 10:06 Dose: 2.5 mls/min Documented By: DALE Ioversol (Optiray 320 100ml) 100 ml IV ONCE ONE Stop: 01/24/25 03:10 Last Admin: 01/24/25 03:10 Dose: 93 ml Documented By: SG Morphine Sulfate (Morphine Sulfate 10 Mg/Ml Carp/Vial) 8 mg IV NOW STA Stop: 01/24/25 02:21 Last Admin: 01/24/25 02:45 Dose: 8 mg Documented By: HARIS Ondansetron HCl (Ondansetron Inj 2 Mg/Ml 2 Ml Vial) 4 mg IV NOW STA Stop: 01/24/25 02:21 Last Admin: 01/24/25 02:48 Dose: 4 mg Documented By: HARIS Polyethylene Glycol (Polyethylene (Miralax) 17 Gm Pack) 17 gm PO DAILY [facility] Stop: 02/23/25 10:14 Last Admin: 01/24/25 10:21 Dose: 17 gm Documented By: DALE Medical Decision Making Differential Diagnosis Differential diagnosis: Etiologies such as biliary colic, cholecystitis, hepatitis, pancreatitis, cardiac disease, pancreatitis, gastritis, peptic ulcer disease, appendicitis, cystitis, diverticulitis, mesenteric ischemia, inflammatory bowel disease, ileus, bowel obstruction, testicular/adnexal torsion, aortic pathology, shingles, as well as others were considered Laboratory Data 01/24/25 01:48 01/24/25 01:48 Lab Results 01/24/25 01/24/25 Range/Units 01:45 01:48 WBC 9.38 (4.8-10.8) K/ul RBC 4.46 (4.20-5.40) M/uL Hgb 13.2 (12.0-16.0) g/dl Hct 39.4 (37.0-47.0) % MCV 88.3 (80.0-100.0) fL MCH 29.6 (25.0-34.0) pg MCHC 33.5 (32.0-36.0) g/dL RDW Std Deviation 39.8 (36.4-46.3) fL RDW Coeff of Patrick 12.3 (11.5-14.5) % Plt Count 244 (130-400) K/uL MPV 10.0 (9.4-12.4) fL Immature Gran % (Auto) 0.3 % Neut % (Auto) 61.5 % Lymph % (Auto) 29.6 % [place] % (Auto) 6.0 % Eos % (Auto) 2.1 % Baso % (Auto) 0.5 % Neut # (Auto) 5.76 (1.40-6.50) K/uL Lymph # (Auto) 2.78 (1.20-3.40) K/uL [place] # (Auto) 0.56 (0.11-0.59) K/uL Eos # (Auto) 0.20 (0.00-0.50) K/uL Baso # (Auto) 0.05 (0.00-0.20) K/uL Immature Gran # (Auto) 0.03 (0.01-0.20) K/uL Sodium 134 L (136-145) mmol/L Potassium 3.9 (3.5-5.1) mmol/L Chloride 103 (98-107) mmol/L Carbon Dioxide 25 (21-32) mmol/L Anion Gap 6 (3-11) BUN 17 (6-23) mg/dl Creatinine 0.72 (0.6-1.2) mg/dl Est Cr Clr Drug Dosing 119.0 ml/min eGFR 112.45 BUN/Creatinine Ratio 23.6 H (10-20) Glucose 115 H (70-99(Fasting)) mg/dl Calcium 9.8 (8.6-10.3) mg/dl Total Bilirubin 0.2 (0.2-1.0) mg/dl AST 17 (13-39) U/L ALT 17 (7-52) U/L Alkaline Phosphatase 65 (34-104) U/L Troponin I High Sens < 2.3 (0-14) pg/ml Total Protein 7.9 (6.0-8.3) gm/dl Albumin 4.7 (3.4-5.0) gm/dl Globulin 3.2 (2.5-4.0) gm/dl Albumin/Globulin Ratio 1.5 (0.9-2) Lipase 66 (11-82) U/L HCG, Qual Negative (Negative) Urine Color Yellow Urine Appearance Clear (Clear) Urine pH 6.5 (4.5-7.5) Ur Specific [place] 1.022 (1.000-1.030) Urine Protein Negative (Negative) Urine Glucose (UA) Negative (Negative) Urine Ketones Negative (Negative) Urine Blood Negative (Negative) Urine Nitrite Negative (Negative) Urine Bilirubin Negative (Negative) Urine Urobilinogen Negative (Negative) Ur Leukocyte Esterase Negative (Negative) Imaging Data Radiologist's Impression: Abdomen/Pelvis CT 01/24/25 02:20 EXAM: CT abd pelvis IV con only CLINICAL HISTORY: Upper abd pain. Hx ulcers. TECHNIQUE: Contiguous axial images were obtained from the level of the diaphragm to the pubic symphysis with intravenous contrast. Coronal and sagittal reconstructions were likewise performed and indicated to increase the sensitivity for detecting clinically relevant pathology. If IV contrast material had not been administered, the likelihood of detecting abnormalities relevant to the patient's condition would have been substantially decreased. CT scan was performed according to ALARA (as low as reasonable achievable). COMPARISON: February 06 FINDINGS: The visualized lung bases are clear. The liver is normal in size and attenuation. No focal liver lesions are seen. There is no intra or extrahepatic biliary ductal dilatation. Hepatic vasculature is patent. Status post-cholecystectomy. The spleen, pancreas, and adrenal glands are unremarkable. The kidneys are normal in size and attenuation. There is no hydronephrosis or perinephric fat stranding. No renal calculi or renal masses are identified. The ureters are normal in caliber and no ureteral calculi are seen. The bladder is normal in contour. Stable small uterine fibroid seen. No focal or diffuse bowel wall thickening or evidence of bowel obstruction is identified. The appendix is visualized in the right lower quadrant and appears within normal limits. Abdominal and pelvic vasculature is patent. No adenopathy or fluid collections are seen. No aggressive appearing osseous lesions are identified. IMPRESSION: 1. Status post-cholecystectomy. 2. Hepatic steatosis. -stable. 3. Stable small uterine fibroid seen. 4. No other new interval abnormality since prior study. Electronically signed by Nicolas Alvarenga 01-24-2025 04:08 AM MDM Narrative Physical exam and history were performed. Nursing notes, EMR, and Medication List were personally reviewed. No social concerns were identified as barriers to patients care. History was provided by the Patient. Patient appears to have significant epigastric pain bringing her to the ER. She is tender through this distribution. IV access was established and labs were obtained. She was hydrated with normal saline and given IV morphine, IV Tylenol, IV Pepcid, IV Protonix, IV Zofran, and a GI cocktail. She was sent to CT scan for imaging of her abdomen and pelvis. An order was placed for continuous cardiac monitoring. The monitor shows a rate of 98 with normal sinus rhythm. Patient's blood work is as above and was reviewed. She does not have a significantly elevated white blood cell count, gross anemia, bandemia, or significant electrolyte imbalance. Lipase and transaminases are not diagnostic. Urine without evidence of infection. CT scan was performed and independently reviewed by myself and radiology showing no acute process to account for the patient's symptoms. On reevaluation the patient continues to appear very uncomfortable. She remains with epigastric tenderness despite medication here in the ER. Her nausea seems to be increasing as well and I did provide IV Phenergan. Escalation of care was considered, and felt necessary as the patient has not significantly improved here in the ER. The challenges that many of her symptoms could be from worsening ulceration or erosive GI etiology. This will be difficult to establish in the ER without endoscopy. The case was discussed with the on-call hospitalist team, who agreed to evaluate the patient here in the ER. Please see their dictation for further patient course, plan, and disposition. The chart was completed utilizing [employer] Speech Voice Recognition Software. Grammatical errors, random word insertions, pronoun errors, and incomplete sentences are an occasional consequence of this system due to software limitations, ambient noise, and hardware issues. Any formal questions or concerns about the content, text, or information contained within the body of this dictation should be directly addressed to the provider for clarification. Impression & Plan Nausea, Intractable epigastric abdominal pain Discharge Plan Visit Data Chief Complaint: Abdominal Pain Stated Complaint: ABDOMINAL PAIN ED Provider: Valentina Liz ED Midlevel Provider: Jose Alberto Irizarry Discharge Problem: Nausea, Intractable epigastric abdominal pain Patient Disposition: Admitted As Inpatient Discharge Instructions Interventions: ED Discharge Assessment Last Done: 01/24/25 08:40
[2025-01-24] MEDS: PROMETHAZINE 12.5 MG/50.5 ML BAG IV STA (05:15)
--- NOTE | 2025-01-24 05:20 | History & Physical Report ---
Date of Service January 24, 2025 Assessment & Plan (1) Abdominal pain: (2) Diarrhea: (3) Intractable nausea: (4) Erosive gastritis: (5) Hyponatremia: Plan Patient is a 34-year-old female with past medical history of erosive gastritis, chronic diarrhea, ADHD, depression, anxiety, migraines. She presented to the ED due to severe epigastric pain and nausea. She is being admitted for IV fluids, IV nausea control, IV pain control, and to have GI eval for viral gastritis versus peptic ulcer. #Abdominal pain/diarrhea/nausea gastritis versus peptic ulcer AP CT negative for acute changes, s/p cholecystectomy, stable hepatic steatosis, stable small uterine fibroid LFTs and lipase WNL electrolytes stable Stool cultures ordered Continue Protonix and Pepcid IV twice daily Scheduled Tylenol IV and Dilaudid 0.25 as needed for breakthrough pain Nausea control with Zofran and Phenergan IV N.p.o. status Consult GI, possible EGD Given 1L NSS bolus in ED, continue IVF resuscitation with LR at 80 mL/hour x1 bag trend CBC and CMP #hyponatremia NA 134 Suspect 2/2 hypovolemia with poor p.o. intake and diarrhea IVF resuscitation as above Trend BMP Chronic stable diagnoses: ADHD/anxiety/depression holding p.o. medications with above Migraines triptan as needed, patient reports having used recently VTE ppx: SCDs, defer chemical PPx with possible EGD Diet: NPO Dispo: med surg Admission and Anticipated Discharge Date Admission Date: 01/24/25 History of Present Illness Chief Complaint: Abdominal pain Primary Care Provider: Salena Castaneda MD Patient is a 34-year-old female with past medical history of erosive gastritis, chronic diarrhea, ADHD, depression, anxiety, migraines. She presented to the ED due to severe epigastric pain and nausea. She is being admitted for IV fluids, IV nausea control, and to have GI eval for viral gastritis versus peptic ulcer. 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 She stated that on Thursday she developed soft and frequent diarrhea, denies liquid diarrhea. She stated that she notices more mucus in her bowel movements and it is a burnt orange color however denies diffuse blood in stool. She also endorses nausea however denies any vomiting. She has an occasional dry heaves. She also has severe epigastric and left upper quadrant pain that woke her up out of her sleep yesterday. It is a 10 out of 10 at its worst. After receiving 8 Mg IV morphine and 1000 Mg IV Tylenol in ED pain is still 6/10, will trial Dilaudid. She has been able to tolerate some p.o. intake over the past few days however it has been less than normal. She endorses dyspnea on exertion for the past few days as well. She denies dizziness, lightheadedness, sore throat, runny nose, cough, congestion, chest pain. she denies any sick contacts at home, however does work in the ER. She has had no recent antibiotic use. She does not use nicotine products or frequently drink alcohol. She denies past history of DM or previous VTE. She does have a history of cholecystectomy. Her most recent EGD and colonoscopy were in 2022, EGD showed gastritis, colonoscopy showed nonbleeding internal hemorrhoids. She did take her pantoprazole yesterday however missed her SSRI due to nausea. She wishes to be full code. Allergies Allergy/AdvReac Type Severity Reaction Status Date / Time ennis Allergy Severe Anaphylaxis Verified 01/24/25 08:16 adhesive Allergy Intermediate redness,swe Verified 01/24/25 08:16 lling egg Allergy Intermediate Rash Verified 01/24/25 08:16 Influenza Virus Vaccines Allergy Intermediate swelling Verified 01/24/25 08:16 of arm latex Allergy Mild rash Verified 01/24/25 08:16 banana AdvReac Mild Dry Mouth Verified 01/24/25 08:16 Home Medications Medication Instructions Recorded Confirmed Type riboflavin (vitamin B2) 400 mg 400 mg PO QAM 04/14/19 01/24/25 History tablet cholecalciferol (vitamin D3) 50 2,000 units PO QAM 04/19/19 01/24/25 History mcg (2,000 unit) capsule omega-3 fatty acids 1,000 mg 1,000 mg PO QAM 04/19/19 01/24/25 History capsule magnesium 250 mg tablet 250 mg PO QAM 07/22/19 01/24/25 History flaxseed oil 1,000 mg capsule 1,000 mg PO QAM 07/18/21 01/24/25 History dicyclomine 10 mg capsule 10 mg PO QID PRN Abdominal Pain 01/26/24 01/24/25 History dextroamphetamine-amphetamine 5 mg See Rx Instructions .Route .COMPLEX 06/29/24 01/24/25 History tablet (Adderall) sucralfate 1 gram tablet 1 g PO QID PRN Before certain meals 06/29/24 01/24/25 History ondansetron 4 mg disintegrating 4 mg PO Q8H PRN Nausea #30 tabs 09/07/24 01/24/25 Rx tablet pantoprazole 40 mg tablet,delayed 40 mg PO BID #60 tabs 09/07/24 01/24/25 Rx release acetaminophen 500 mg tablet 500 mg PO Q6H PRN Pain 01/24/25 01/24/25 History escitalopram oxalate 5 mg tablet 5 mg PO QAM 01/24/25 01/24/25 History fluoxetine 20 mg capsule 20 mg PO QAM 01/24/25 01/24/25 History Past Med/Surg History Problem List (Updated 01/24/25 @ 23:24 by Jose Alberto Irizarry PA-C) Intractable epigastric abdominal pain (Acute) Nausea (Acute) Hyponatremia Intractable nausea Diarrhea Abdominal pain Chronic abdominal pain Ill-defined condition Overflow diarrhea ADHD Erosive gastritis Chronic diarrhea Atypical chest pain Hypertriglyceridemia Fatigue Elevated blood pressure reading without diagnosis of hypertension Difficulty concentrating Drug allergy Allergic rhinitis due to animal hair and dander Headache History of influenza vaccine allergy Migraine without aura Esophageal dysphagia Anxiety Depression History of anemia Migraine Medical History Palpitations has worn heart monitor in past > nothing conclusive History of COVID-19 2020 Swallowing difficulty reason for up coming colon/EGD Difficult airway for intubation small airway--had to be kept overnight after cholecystectomy History of anesthesia reaction difficulty waking Symptoms consistent with irritable bowel syndrome reason for up coming colon/EGD Surgical History History of esophagogastroduodenoscopy (EGD) History of cholecystectomy (~2009) Family History Grandmother (Maternal) Melanoma Myocardial infarction Aunt Aneurysm and dissection of heart Father Diabetes Melanoma Hypertension TIA (transient ischemic attack) Brother Gallbladder disease Mother Diabetes Uterine cancer Other No family history of adverse response to anesthesia Denies family history of Colon cancer Ovarian cancer Prostate cancer Breast cancer Social History Smoking Status: Never smoker Second Hand Exposure: No; Do You Dip or Chew Tobacco: No; Hx Alcohol Use: Yes Alcohol type: beer Alcohol Intake Frequency: Monthly or Less Hx Substance Use: No Preferred Language: Bengali Communication Ability: Effective Visual Impairment: No Limitations Hearing Ability: Normal Construction Carpenter Required: No Beliefs That Will Affect Care: None marital status: Single Current Living Situation: Spouse and Family Current Living Situation Comment: Lives with and 3 kids current occupational status: employed 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[employer] How many Children do You have: 2 Other Information That Helps Us Care for You: No Feels Safe at Home: Yes Safety Concerns: Feels Safe At This Time Childhood Exposure to Second-Hand Smoke: No Diet: regular caffeine: No during the past year weight has: increased > 10 lbs Dental Care, Regularly: No Physical Activity Frequency: Daily Seatbelt Use: always Sunscreen Use: Yes Assistive Devices: Contacts and Glasses Review of Systems Review of Systems: see HPI Physical Exam Physical Exam: The patient is awake, alert and oriented 3, well developed and well nourished, normocephalic and atraumatic, in no acute distress. Non-toxic appearing. HEENT- EOMI, mucous membranes dry. Hearing grossly intact. Heart-normal S1 and S2. No murmurs, rubs or gallops. Lungs-clear bilaterally, no respiratory distress, no accessory muscle use. Abdomen-normal bowel sounds and soft. No ascites noted. Tender to LUQ, LLQ, .RLQ Extremities- no clubbing, cyanosis, or edema. Rheumatologic-normal range of motion. Psychiatric-tearful affect. Results & Data Results & Data Vital Signs (Past 12 Hours) Vital Signs Temp Pulse Resp BP Pulse Ox O2 Del Method 01/24/25 04:28 100 H 20 97 Room Air 01/24/25 03:30 89 18 132/92 97 01/24/25 03:10 83 16 145/87 H 97 01/24/25 02:46 97 H 24 128/86 98 01/24/25 02:08 85 01/24/25 02:01 96 H 20 123/90 98 01/24/25 01:43 95 H 22 135/92 98 01/24/25 01:30 37 C 107 H 20 158/91 H 98 Room Air Laboratory Results Reviewed CBC, CMP, UA, troponin, lipase, HCG Diagnostic Findings reviewed ap ct Medications Administered EDProtonix 40 Mg IV, Pepcid IV, morphine 8 Mg IV, Zofran 4 Mg IV, Maalox, Tylenol 1000 Mg IV, 1L NSS bolus, IV Phenergan AdmissionProtonix 40 Mg IV, Dilaudid 0.25 Mg IV ECG Additional Comments: nsr rate 82 qtc 436 Code Status & VTE Plan Code Status full VTE Prophylaxis Plan VTE Prophylaxis will be ordered: Yes Supervising Physician Co-Signing Physician Notes Attending addendum: I have physically seen this patient, have supervised the KATHARINA's activities, and agree with the H&P unless as otherwise noted. Assessment and Plan: The patient is a 34-year-old female with past medical history including erosive gastritis, chronic diarrhea, ADHD, depression/anxiety, and migraines, who presents to the emergency department with severe epigastric pain and nausea worsening over the past 24 hours but present over the past week. From the emergency department she received 1 L normal saline, morphine sulfate 10 mg IV, Zofran 4 mg IV, pantoprazole 40 mg IV, famotidine 2 mg IV, Maalox 30 cc, and Tylenol 1 g IV. With persistent symptoms, she was referred to the [facility] service for further evaluation and treatment. #Erosive gastritis/severe abdominal pain- Given additional pantoprazole 40 mg IV" 80 mg IV now, and then 40 mg IV twice daily Placed on famotidine 20 mg IV twice daily NPO except essential medications Tylenol 1 g IV every 8 hours as needed for mild pain or fever Avoiding NSAIDs Dilaudid 0.25 mg IV every 3 hours as needed for moderate to severe breakthrough pain NSS at 80 mL/h x 1 additional liter Stool cultures ordered Most recent EGD and colonoscopy from 07/27/2023 reviewed, and shows significant erosive gastritis with recommendation for pantoprazole 40 mg p.o. twice daily Consult gastroenterology, as patient will likely need an EGD Chronic medical conditions: ADHD/anxiety/depression-currently hold medications while n.p.o. Migraine-continue triptan as needed Remaining orders and notations as noted PG Care Time/CCT Total # of Minutes Spent Total Time Spent with Patient: Total time spent is greater than 50% in coordination of care (as documented) at patient's floor/unit and/or counseling patient: Coding Level of Care Code 61624 INT INP/OBS CARE MIN Diagnoses Abdominal pain R10.9 Diarrhea R19.7 Intractable nausea R11.0 Erosive gastritis K29.60 Hyponatremia E87.1
[2025-01-24] MEDS: HYDROmorphone INJ 0.5 MG/0.5 ML SYR IV STA (05:41)
--- NOTE | 2025-01-24 06:11 | Electrocardiogram Report ---
Test Reason : Blood Pressure : */* mmHG Vent. Rate : 82 BPM Atrial Rate : 82 BPM P-R Int : 126 ms QRS Dur : 74 ms QT Int : 374 ms P-R-T Axes : 25 26 38 degrees QTcB Int : 436 ms Normal sinus rhythm Normal ECG When compared with ECG of 28-Apr-2024 00:25, No significant change was found Confirmed by Jerardo Rush ([id number]) on 01/24/2025 6:11:10 AM Referred By: REFERRED SELF Confirmed By: Jerardo Rush
[2025-01-24] MEDS: LACTATED RINGER'S 1,000 ML IV SCH (06:18)
[2025-01-24] MEDS ORDERED: HYDROmorphone INJ 1 MG/ML SYRINGE IV PRN (08:40)
[2025-01-24] MEDS ORDERED: PROMETHAZINE 12.5 MG/50.5 ML BAG IV PRN (08:40)
--- NOTE | 2025-01-24 10:03 | Gastrointestinal Consultation ---
Date of Consultation January 24, 2025 Assessment & Plan (1) Abdominal pain: Patient presented to the ED with abdominal pain and nausea. It sounds like she has some underlying constipation. KUB 10/2024 shown mild to moderate stool. I suspect that her current issues are related to underlying constipation. - continue with protonix 40mg bid and famotidine 20mg bid. - start miralax 17gm daily. can titrate up to TID as needed. - I do not feel she needs an EGD at this time. Patient agrees with this. - can monitor how she does with bowel regimen. Supervising Physician Co-Signing Physician Notes I personally saw and examined the patient. I have reviewed the chart and agree with the documentation provided by the GUEST REQUEST RUNNER including discussion about the assessment, treatment and plan. Briefly, a 34 year old female with past medical history of erosive gastritis, chronic diarrhea, ADHD, depression, anxiety, migraines who presented to the ED 01/24 due to severe epigastric pain and nausea. she does not have any vomiting. she describes her pain as a bloating sensation. As an outpatient she takes protonix 40mg bid and feels this does a good job controlling her reflux symptoms. no nsaids. She tells me that she does not feel her current symptoms are acid related. She had an EGD and colonoscopy by Dr. Bhardwaj in 07/27/2023. Her biopsies were negative for microscopic colitis, the biopsies of the stomach showed chronic gastritis with mild focal intestinal metaplasia without any atrophy. She has been on PPI twice daily and feeling better with her acid control. I think her current symptoms are from constipation and bloating. I would treat her supportively with a bowel regimen. No acute role for repeat EGD or colon. Restarted her diet and see how she does clinically. History of Present Illness Reason for Consultation: gastritis vs ulcer, ? EGD Requesting Physician: Jazmine FENTON Attending Physician: Bzuz iMna MD History of Present Illness Patient is a 34 year old female with past medical history of erosive gastritis, chronic diarrhea, ADHD, depression, anxiety, migraines who presented to the ED 01/24 due to severe epigastric pain and nausea. she does not have any vomiting. she describes her pain as a bloating sensation. As an outpatient she takes protonix 40mg bid and feels this does a good job controlling her reflux symptoms. no nsaids. She tells me that she does not feel her current symptoms are acid related. She does admit to a history of constipation and has several small bowel movements a day where she does not feel she gets relief. she can skip days between bowel movements at times. she takes dicyclomine but feels this ends up making things worse. She had CT with IV contrast that was unremarkable. CBC, LFTs, and lipase were unremarkable. EGD 2022: - Normal esophagus. - Gastritis. Biopsied. - Normal examined duodenum. Biopsied. Colonoscopy 2022: - Non-bleeding internal hemorrhoids. - Several random biopsies were obtained in the entire colon. Allergies Allergy/AdvReac Type Severity Reaction Status Date / Time ennis Allergy Severe Anaphylaxis Verified 01/24/25 08:16 adhesive Allergy Intermediate redness,swe Verified 01/24/25 08:16 lling egg Allergy Intermediate Rash Verified 01/24/25 08:16 Influenza Virus Vaccines Allergy Intermediate swelling Verified 01/24/25 08:16 of arm latex Allergy Mild rash Verified 01/24/25 08:16 banana AdvReac Mild Dry Mouth Verified 01/24/25 08:16 Home Medications Medication Instructions Recorded Confirmed Type riboflavin (vitamin B2) 400 mg 400 mg PO QAM 04/14/19 01/24/25 History tablet cholecalciferol (vitamin D3) 50 2,000 units PO QAM 04/19/19 01/24/25 History mcg (2,000 unit) capsule omega-3 fatty acids 1,000 mg 1,000 mg PO QAM 04/19/19 01/24/25 History capsule magnesium 250 mg tablet 250 mg PO QAM 07/22/19 01/24/25 History flaxseed oil 1,000 mg capsule 1,000 mg PO QAM 07/18/21 01/24/25 History dicyclomine 10 mg capsule 10 mg PO QID PRN Abdominal Pain 01/26/24 01/24/25 History dextroamphetamine-amphetamine 5 mg See Rx Instructions .Route .COMPLEX 06/29/24 01/24/25 History tablet (Adderall) sucralfate 1 gram tablet 1 g PO QID PRN Before certain meals 06/29/24 01/24/25 History ondansetron 4 mg disintegrating 4 mg PO Q8H PRN Nausea #30 tabs 10/23/24 03/11/25 Rx tablet pantoprazole 40 mg tablet,delayed 40 mg PO BID #60 tabs 09/07/24 01/24/25 Rx release acetaminophen 500 mg tablet 500 mg PO Q6H PRN Pain 01/24/25 01/24/25 History escitalopram oxalate 5 mg tablet 5 mg PO QAM 01/24/25 01/24/25 History fluoxetine 20 mg capsule 20 mg PO QAM 01/24/25 01/24/25 History Patient History Medical History Palpitations has worn heart monitor in past > nothing conclusive History of COVID-2020 Swallowing difficulty reason for up coming colon/EGD Difficult airway for intubation small airway--had to be kept overnight after cholecystectomy History of anesthesia reaction difficulty waking Symptoms consistent with irritable bowel syndrome reason for up coming colon/EGD Surgical History History of esophagogastroduodenoscopy (EGD) History of cholecystectomy (~2009) Family History Grandmother (Maternal) Melanoma Myocardial infarction Aunt Aneurysm and dissection of heart Father Diabetes Melanoma Hypertension TIA (transient ischemic attack) Brother Gallbladder disease Mother Diabetes Uterine cancer Other No family history of adverse response to anesthesia Denies family history of Colon cancer Ovarian cancer Prostate cancer Breast cancer Social History Smoking Status: Never smoker Second Hand Exposure: No; Do You Dip or Chew Tobacco: No; Hx Alcohol Use: Yes Alcohol type: beer Alcohol Intake Frequency: Monthly or Less Hx Substance Use: No Preferred Language: British Communication Ability: Effective Visual Impairment: No Limitations Hearing Ability: Normal Restorative Care Technician Required: No Beliefs That Will Affect Care: None marital status: Single Current Living Situation: Spouse and Family Current Living Situation Comment: Lives with and 3 kids current occupational status: 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 Other Information That Helps Us Care for You: No Feels Safe at Home: Yes Safety Concerns: Feels Safe At This Time Childhood Exposure to Second-Hand Smoke: No Diet: regular caffeine: No during the past year weight has: increased > 10 lbs Dental Care, Regularly: No Physical Activity Frequency: Daily Seatbelt Use: always Sunscreen Use: Yes Assistive Devices: Contacts and Glasses Review of Systems Review of Systems: All systems reviewed & are unremarkable except as noted in HPI & below Physical Exam Constitutional: WD/WN, vitals as above Respiratory: normal respiratory effort, lungs clear to auscultation Cardiovascular: Rate/Rhythm: regular rate and regular rhythm Gastrointestinal (Abdomen): left sided tenderness to palpation, no guarding, soft. normal bowel sounds. Psychiatric: Orientation: alert and oriented x 3 Affect: euthymic affect Results & Data Vital Signs (Past 12 Hours) Vital Signs Temp Pulse Pulse Pulse Resp BP BP 01/24/25 09:45 97.5 F L 88 16 114/80 01/24/25 09:00 77 18 114/77 01/24/25 07:00 82 17 122/67 01/24/25 06:30 83 21 110/65 01/24/25 06:26 97 H 01/24/25 06:00 96 H 14 102/67 01/24/25 05:30 84 17 119/76 01/24/25 05:01 82 18 95/73 L 01/24/25 05:00 94 H 13 95/73 L 01/24/25 04:30 93 H 16 119/93 01/24/25 04:28 100 H 20 01/24/25 03:30 89 18 132/92 01/24/25 03:10 83 16 145/87 H 01/24/25 02:46 97 H 24 128/86 01/24/25 02:08 85 01/24/25 02:01 96 H 20 123/90 01/24/25 01:43 95 H 22 135/92 01/24/25 01:30 98.6 F 107 H 20 158/91 H Pulse Ox O2 Del Method 01/24/25 09:45 100 Room Air 01/24/25 09:00 94 Room Air 01/24/25 07:00 94 Room Air 01/24/25 06:30 95 01/24/25 06:26 01/24/25 06:00 95 01/24/25 05:30 97 01/24/25 05:01 97 01/24/25 05:00 98 01/24/25 04:30 96 01/24/25 04:28 97 Room Air 01/24/25 03:30 97 01/24/25 03:10 97 01/24/25 02:46 98 01/24/25 02:08 01/24/25 02:01 98 01/24/25 01:43 98 01/24/25 01:30 98 Room Air Coding Level of Care Code 16521 IN/OBS CONSULT LVL 4,60M Diagnoses Abdominal pain R10.9
[2025-01-24] MEDS: FAMOTIDINE 20MG IV PUSH 20 MG/5 ML SYR IV SCH (10:06)
[2025-01-24] MEDS: ACETAMINOPHEN 1,000 MG/100 ML VIAL IV SCH (10:06)
[2025-01-24] MEDS: POLYETHYLENE (MIRALAX) 17 GM PACK PO SCH (10:21)
--- NOTE | 2025-01-24 14:54 | Communication Note ---
Date of Service: January 24, 2025 Please refer to the H&P dictated earlier this morning for details of presentation on admission. In brief, the patient presented with abdominal pain. Abdominal imaging negative. LFTs and lipase negative. GI involved. Recommended no EGD at this time but to treat constipation. Patient has been started on MiraLAX. Will monitor closely.
[2025-01-24] MEDS: FAMOTIDINE 20 MG TAB PO SCH (20:01)
[2025-01-24] MEDS: PANTOprazole 40 MG TAB PO SCH (20:01)
[2025-01-24] MEDS ORDERED: PANTOprazole 40 MG/10 ML SYR IV SCH (21:00)
[2025-01-24] MEDS: POLYETHYLENE (MIRALAX) 17 GM PACK PO PRN (22:15)
[2025-01-25] MEDS: ONDANSETRON INJ 2 MG/ML 2 ML VIAL IV PRN (01:16)
[2025-01-25 07:27] VITALS: BP 106/71; PULSE 90; RESP 18; TEMP 98.2; O2SAT 99
[2025-01-25 07:54] LABS: Basophils # (auto) 0.03 K/uL (0.00-0.20); Basophils % (auto) 0.5 %; Eosinophils # (auto) 0.17 K/uL (0.00-0.50); Eosinophils % (auto) 2.8 %; Hematocrit (blood only) 37.9 % (37.0-47.0); Hemoglobin 12.8 g/dl (12.0-16.0); Immature Granulocytes # (auto) 0.02 K/uL (0.01-0.20); Immature Granulocytes % (auto) 0.3 %; Lymphocytes % (auto) 26.7 %; Mean Corpuscular Hemoglobin 30.4 pg (25.0-34.0); Mean Corpuscular Hgb Conc 33.8 g/dL (32.0-36.0); Mean Platelet Volume 10.2 fL (9.4-12.4); Monocytes # (auto) 0.37 K/uL (0.11-0.59); Monocytes % (auto) 6.2 %; Neutrophils # (auto) 3.81 K/uL (1.40-6.50); Neutrophils % (auto) 63.5 %; Platelet Count 207 K/uL (130-400); RDW Coefficient of Variation 12.4 % (11.5-14.5); RDW Standard Deviation 40.2 fL (36.4-46.3); Red Blood Count 4.21 M/uL (4.20-5.40)
[2025-01-25 08:10] LABS: Albumin Globulin Ratio 1.4 (0.9-2); Albumin Level 4.2 gm/dl (3.4-5.0); BUN Creatinine Ratio 11.4 (10-20); Bilirubin,Total 0.5 mg/dl (0.2-1.0); Creatinine Clr Calc Pharmacy 122.3 ml/min; Magnesium 2.1 mg/dl (1.7-2.4); Total Protein 7.2 gm/dl (6.0-8.3)
[2025-01-25] MEDS: FLUoxetine HCL 20 MG CAP PO SCH (08:53)
[2025-01-25] MEDS: ESCITALOPRAM OXALATE 10 MG TAB PO SCH (08:54)
[2025-01-25] MEDS ORDERED: ACETAMINOPHEN 500 MG TAB PO PRN (10:00)
--- NOTE | 2025-01-25 10:30 | Gastroenterology Progress Note ---
Date of Service January 25, 2025 Assessment & Plan (1) Chronic abdominal pain: Plan: 34 year old female with history of migraines, anxiety/depression, ADHD, gastritis, IM (recall EGD 2025) and others below admitted w/ abd pain and nausea - Continue Pantoprazole - Continue Pepcid - Continue Miralax 1 capful three times daily - If no response, may need Linzess authorization as an outpatient - Recall EGD 2025 - Recall colonoscopy age 45 I spent a total of 40 minutes on the date of service in review of patient's record, and previously obtained information in person and appropriate medical visit, discussion and education of plan, with patient and/or caregiver, placing orders for tests/referral/procedures as medically necessary and documentation of pertinent clinical information in patient's medical records for their visit today. Admission and Anticipated Discharge Date Admission Date: January 24, 2025 Supervising Physician Co-Signing Physician Notes I personally saw and examined the patient. I have reviewed the chart and agree with the documentation provided by the SOAKER HELPER including discussion about the assessment, treatment and plan. Briefly, she has IBS mixed with constipation greater than diarrhea. Her anxiety is making her symptoms worse. I suspect a lot more of her pain this time around was due to constipation. She is underwent an EGD colonoscopy that has been described. At this point supportive care with a bowel regimen and follow-up with behavioral health for her anxiety. Subjective Pt was seen and evaluated, chart reviewed. Passing gas, last BM was yesterday. Is on Miralax TID. Abd pain is somewhat improved since admission. No fever, chills, CP, SOB. CTAP 2024: Status post-cholecystectomy. Hepatic steatosis. -stable. Stable small uterine fibroid seen. No other new interval abnormality since prior study. KUB 2023: Unremarkable KUB. No evidence for a bowel obstruction. Review of Systems Review of Systems: All other findings negative except as noted in HPI. Physical Exam Constitutional: WD/WN, vitals as above Respiratory: normal respiratory effort Cardiovascular: Rate/Rhythm: regular rate and regular rhythm Gastrointestinal (Abdomen): normal bowel sounds, soft, nontender, no hepatosplenomegaly Skin: no rashes, warm and dry Results & Data Results & Data Vital Signs (Past 12 Hours) Vital Signs Temp Pulse Resp BP Pulse Ox O2 Del Method 01/25/25 07:27 98.2 F 90 18 106/71 99 Room Air Laboratory Results 01/25/25 Range/Units 06:05 WBC 6.00 (4.8-10.8) K/ul RBC 4.21 (4.20-5.40) M/uL Hgb 12.8 (12.0-16.0) g/dl Hct 37.9 (37.0-47.0) % MCV 90.0 (80.0-100.0) fL MCH 30.4 (25.0-34.0) pg MCHC 33.8 (32.0-36.0) g/dL RDW Std Deviation 40.2 (36.4-46.3) fL RDW Coeff of Patrick 12.4 (11.5-14.5) % Plt Count 207 (130-400) K/uL MPV 10.2 (9.4-12.4) fL Immature Gran % (Auto) 0.3 % Neut % (Auto) 63.5 % Lymph % (Auto) 26.7 % [place] % (Auto) 6.2 % Eos % (Auto) 2.8 % Baso % (Auto) 0.5 % Neut # (Auto) 3.81 (1.40-6.50) K/uL Lymph # (Auto) 1.60 (1.20-3.40) K/uL [place] # (Auto) 0.37 (0.11-0.59) K/uL Eos # (Auto) 0.17 (0.00-0.50) K/uL Baso # (Auto) 0.03 (0.00-0.20) K/uL Immature Gran # (Auto) 0.02 (0.01-0.20) K/uL Sodium 137 (136-145) mmol/L Potassium 4.0 (3.5-5.1) mmol/L Chloride 103 (98-107) mmol/L Carbon Dioxide 28 (21-32) mmol/L Anion Gap 6 (3-11) BUN 8 (6-23) mg/dl Creatinine 0.70 (0.6-1.2) mg/dl Est Cr Clr Drug Dosing 122.3 ml/min eGFR 116.31 BUN/Creatinine Ratio 11.4 (10-20) Glucose 78 (70-99(Fasting)) mg/dl Calcium 9.0 (8.6-10.3) mg/dl Magnesium 2.1 (1.7-2.4) mg/dl Total Bilirubin 0.5 (0.2-1.0) mg/dl AST 25 (13-39) U/L ALT 23 (7-52) U/L Alkaline Phosphatase 61 (34-104) U/L Total Protein 7.2 (6.0-8.3) gm/dl Albumin 4.2 (3.4-5.0) gm/dl Globulin 3.0 (2.5-4.0) gm/dl Albumin/Globulin Ratio 1.4 (0.9-2) PG Care Time/CCT Total # of Minutes Spent Total Time Spent with Patient: Total time spent is greater than 50% in coordination of care (as documented) at patient's floor/unit and/or counseling patient: Coding Level of Care Code 84241 SUB INP/OBS CARE MIN Diagnoses Chronic abdominal pain R10.9; G89.29
--- NOTE | 2025-01-25 13:10 | Discharge Summary ---
Discharge Summary Date of Service January 25, 2025 Principal Dx & Hospital Course #1 = Principal Diagnosis (1) Abdominal pain: (2) Diarrhea: (3) Intractable nausea: (4) Erosive gastritis: (5) Hyponatremia: Plan #Abdominal pain/diarrhea/nausea Patient is a 34-year-old female with past medical history of erosive gastritis, chronic diarrhea, ADHD, depression, anxiety, migraines. She presented to the ED due to severe epigastric pain and nausea. She was being admitted for IV fluids, IV nausea control, IV pain control, and GI eval. CT A/P was negative for acute changes. Patient received IVFs. No further diarrhea while inpatient, thus stool studies were not collected. The GI team did not feel that she needed to be scoped this admission and her symptoms were likely related to constipation and bloating, recommending miralax. Outpatient can trial Linzess if not successful on miralax. Continue protonix and pepcid twice a day. #hyponatremia - Na 134 - mild on admission, suspect related to hypovolemia, improved with IVFs. ADHD/anxiety/depression continue home medications Migraines triptan as needed, patient reports having used recently Dispo: discharge to home today Notes For Next Care Provider need GI follow up for possible linzess Admission HPI Per Admitting Provider Patient is a 34-year-old female with past medical history of erosive gastritis, chronic diarrhea, ADHD, depression, anxiety, migraines. She presented to the ED due to severe epigastric pain and nausea. She is being admitted for IV fluids, IV nausea control, and to have GI eval for viral gastritis versus peptic ulcer. 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 She stated that on Thursday she developed soft and frequent diarrhea, denies liquid diarrhea. She stated that she notices more mucus in her bowel movements and it is a burnt orange color however denies diffuse blood in stool. She also endorses nausea however denies any vomiting. She has an occasional dry heaves. She also has severe epigastric and left upper quadrant pain that woke her up out of her sleep yesterday. It is a 10 out of 10 at its worst. After receiving 8 Mg IV morphine and 1000 Mg IV Tylenol in ED pain is still 6/10, will trial Dilaudid. She has been able to tolerate some p.o. intake over the past few days however it has been less than normal. She endorses dyspnea on exertion for the past few days as well. She denies dizziness, lightheadedness, sore throat, runny nose, cough, congestion, chest pain. she denies any sick contacts at home, however does work in the ER. She has had no recent antibiotic use. She does not use nicotine products or frequently drink alcohol. She denies past history of DM or previous VTE. She does have a history of cholecystectomy. Her most recent EGD and colonoscopy were in 2022, EGD showed gastritis, colonoscopy showed nonbleeding internal hemorrhoids. She did take her pantoprazole yesterday however missed her SSRI due to nausea. She wishes to be full code. Discharge Exam General: NAD, VS as above Resp: normal respiratory effort, lungs clear to auscultation CV: RRR, no murmur, Abd: normal bowel sounds, soft, mild LLQ tenderness Extremities: Moves all extremities, no edema Neuro: A&O x3, Skin: intact, no lesions noted Discharge Plan Discharge Items Patient Disposition: Home - Self-Care Reason For Visit: ABDOMINAL PAIN, DIARRHEA, INTRACTABLE NAUSEA Discharge Diagnosis: Abdominal pain Activity: Resume your previous activity Weightbearing: Full weightbearing Non-emergency contact: Primary Care Provider Call non-emergency contact if: you have any medication questions, your pain is not controlled, your pain is worsening, your pain is unusual for you and your temperature is above 101 Follow-up/Referrals: Salena Castaneda MD [Primary Care Provider] - Sarahi Cardenas CRNP [Nurse Practitioner] - ( follow-up within 1 to 2 months) Diet: Regular Addtl Attending Provider Instructions: Ms. Iyer, You were hospitalized after having worsening abdominal pain and nausea. Thankfully, this has improved with protonix, pepcid and miralax. You were seen by the GI team, who did not feel that he needed to have any sort of invasive imaging during the stay. They thought that your pain was most likely related to constipation. For this reason, you were started on MiraLAX. Recommendations: * Continue Protonix and Pepcid twice a day, As your symptoms improve you can trial to wean off of these to once a day * continue MiraLAX as needed up to 3 times a day to have regular soft bowel movements, if this is not covered by insurance purchases [id number] * outpatient follow-up with GI. They were notified of your hospital stay if you not hear from them by Thursday please call the number above to schedule appointment CONTACT YOUR PRIMARY CARE PROVIDER if you experience any of the following: Shortness of breath or difficulty breathing Fevers or chills Feeling tired with normal activity or experiencing dizziness or fainting Difficulty following your treatment plan, or difficulty taking medications contact GI with the following: Worsening abdominal pain Inability to have bowel movements greater than 3 days CALL 911 OR GO TO THE EMERGENCY DEPARTMENT if you experience any of the following: Severe abdominal pain or nausea/vomiting Severe chest pain, or chest pain that radiates (moves) to your jaw or arm Sudden, severe shortness of breath or difficulty breathing Thank you for allowing us to participate in your care. Pending Studies at Discharge: No Stand-Alone Forms: My [facility] Damage Hounds, Smoking Cessation Medications and DC Order Prescriptions: New polyethylene glycol 3350 [Miralax] 17 gram Powder In Packet 17 g PO TID PRN (Reason: constipation) Qty: 100 0RF famotidine 20 mg Tablet 20 mg PO BID 30 Days Qty: 60 0RF Continued riboflavin (vitamin B2) 400 mg tablet 400 mg PO QAM omega-3 fatty acids 1,000 mg capsule 1,000 mg PO QAM cholecalciferol (vitamin D3) 2,000 unit capsule 2,000 units PO QAM magnesium 250 mg tablet 250 mg PO QAM flaxseed oil 1,000 mg capsule 1,000 mg PO QAM Rx Instructions: administer with a meal pantoprazole 40 mg tablet,delayed release (DR/EC) 40 mg PO BID Qty: 60 5RF ondansetron 4 mg tablet,disintegrating 4 mg PO Q8H PRN (Reason: Nausea) Qty: 30 2RF sucralfate 1 gram tablet 1 g PO QID PRN (Reason: Before certain meals) dextroamphetamine-amphetamine [Adderall] 5 mg tablet See Rx Instructions .ROUTE .COMPLEX Rx Instructions: Take 7.5mg by mouth in the morning, and 2.5mg by mouth in the afternoon. acetaminophen [Tylenol Ex Str Rapid Release] 500 mg Tablet 500 mg PO Q6H PRN (Reason: Pain) fluoxetine 20 mg capsule 20 mg PO QAM escitalopram oxalate 5 mg tablet 5 mg PO QAM Discontinued dicyclomine 10 mg capsule 10 mg PO QID PRN (Reason: Abdominal Pain) Discharge Orders: Discharge Order (Routine); Ordered 01/25/25 Ordered By: Samantha Mace/Other Patient Handouts: ED Constipation (Adult) Admission Data Admit Date/Time: 01/24/25 05:52 Attending Provider: Davy Stephen Admit Provider: Min Middleton Primary Care Provider: Salena Castaneda Other Providers: Min Middleton; [facility] Stay Data Consultations 01/24/25 05:18 ED Decision to Admit Stat 01/24/25 08:40 Consult Gastroenterology Routine Diagnostic Imagining Performed Abdomen/Pelvis CT 01/24/25 02:20 EXAM: CT abd pelvis IV con only CLINICAL HISTORY: Upper abd pain. Hx ulcers. TECHNIQUE: Contiguous axial images were obtained from the level of the diaphragm to the pubic symphysis with intravenous contrast. Coronal and sagittal reconstructions were likewise performed and indicated to increase the sensitivity for detecting clinically relevant pathology. If IV contrast material had not been administered, the likelihood of detecting abnormalities relevant to the patient's condition would have been substantially decreased. CT scan was performed according to ALARA (as low as reasonable achievable). COMPARISON: February 06 FINDINGS: The visualized lung bases are clear. The liver is normal in size and attenuation. No focal liver lesions are seen. There is no intra or extrahepatic biliary ductal dilatation. Hepatic vasculature is patent. Status post-cholecystectomy. The spleen, pancreas, and adrenal glands are unremarkable. The kidneys are normal in size and attenuation. There is no hydronephrosis or perinephric fat stranding. No renal calculi or renal masses are identified. The ureters are normal in caliber and no ureteral calculi are seen. The bladder is normal in contour. Stable small uterine fibroid seen. No focal or diffuse bowel wall thickening or evidence of bowel obstruction is identified. The appendix is visualized in the right lower quadrant and appears within normal limits. Abdominal and pelvic vasculature is patent. No adenopathy or fluid collections are seen. No aggressive appearing osseous lesions are identified. IMPRESSION: 1. Status post-cholecystectomy. 2. Hepatic steatosis. -stable. 3. Stable small uterine fibroid seen. 4. No other new interval abnormality since prior study. Electronically signed by Nicolas Alvarenga 01-24-2025 04:08 AM Pending Results Patient Have Any Pending Studies at Discharge: No Discharge Instructions Given to Patient (Per Discharging Provider) Ms. Iyer, Ronny were hospitalized after having worsening abdominal pain and nausea. Thankfully, this has improved with protonix, pepcid and miralax. You were seen by the GI team, who did not feel that he needed to have any sort of invasive imaging during the stay. They thought that your pain was most likely related to constipation. For this reason, you were started on MiraLAX. Recommendations: * Continue Protonix and Pepcid twice a day, As your symptoms improve you can trial to wean off of these to once a day * continue MiraLAX as needed up to 3 times a day to have regular soft bowel movements, if this is not covered by insurance purchases [id number] * outpatient follow-up with GI. They were notified of your hospital stay if you not hear from them by Thursday please call the number above to schedule appointment CONTACT YOUR PRIMARY CARE PROVIDER if you experience any of the following: Shortness of breath or difficulty breathing Fevers or chills Feeling tired with normal activity or experiencing dizziness or fainting Difficulty following your treatment plan, or difficulty taking medications contact GI with the following: Worsening abdominal pain Inability to have bowel movements greater than 3 days CALL 911 OR GO TO THE EMERGENCY DEPARTMENT if you experience any of the following: Severe abdominal pain or nausea/vomiting Severe chest pain, or chest pain that radiates (moves) to your jaw or arm Sudden, severe shortness of breath or difficulty breathing Thank you for allowing us to participate in your care. Total Time Total Time Spent Total Time Spent (In Minutes): Time spent day of discharge 36 minutes including direct patient care, medication reconciliation, documentation, review of labs and images, and coordination of c are. Coding Level of Care Code 37251 INP/OBS DISCH >30 MIN Diagnoses Abdominal pain R10.9 Diarrhea R19.7 Intractable nausea R11.0 Erosive gastritis K29.60 Hyponatremia E87.1
== END 2025-01-25 14:07 | disposition home or self-care (01) ==
LOC: SUATTDRO → EDINP 01:27 → ED 01:27 → SUATTDRO 05:52 → 3E 08:40